=== PATIENT | male | born 1970 | race Caucasian/White ===

== ENCOUNTER 2016-12-06 06:58 | Observation (INO) | payer BC ==
[2016-12-06] MEDS ORDERED: MORPHINE SULFATE 2 MG/ML SYRINGE IVP STA (07:19)
[2016-12-06] MEDS ORDERED: SODIUM CHLORIDE 0.9% 1,000 ML IV STA (07:19)
[2016-12-06] MEDS ORDERED: NITROGLYCERIN OINT 1 INCH/GM PACKET TOPICAL STA (07:19)
[2016-12-06 07:38] LABS: Basophils % (A) 0 %; CH 31.5; Eosinophils # (A) 0.1 k/uL (0-0.7); Eosinophils % (A) 1 %; HCT 43.7 % (39.0-53.0); HDW 2.51; HGB 15.2 gm/dL (13.0-17.5); Luc # (Auto) 0.23; Luc % (Auto) 3; Lymphocytes # (A) 2.8 k/uL (1.0-4.8); Lymphocytes % (A) 31 %; MCH 31.5 pg (25.0-35.0); MCHC 34.8 g/dL (31.0-37.0); MCV 90.4 fL (80.0-100.0); Mean Platelet Volume 6.5; Monocytes # (A) 0.4 k/uL (0-1.0); Monocytes % (A) 4 %; Neutrophils # (A) 5.4 k/uL (1.3-7.7); Neutrophils % (A) 61 %; RBC 4.83 m/uL (4.30-5.90); RDW 12.6 % (11.5-15.5); WBC 8.9 k/uL (3.8-10.6); WBC (Perox) 8.88
--- NOTE | 2016-12-06 07:41 | ED ---
Chest Pain HPI - General Chief Complaint: Chest Pain Stated Complaint: chest pain Time Seen by Provider: 12/06/16 07:10 Source: patient Mode of arrival: EMS Limitations: no limitations - History of Present Illness Initial Comments: Chest pain started down 8:30 this morning he was at work that time and he also felt some discomfort in the left hand and tingling of his fingers on the left hand there was no weakness of the left hand and he denies any history of heart disease and a he didn't he does not have frequent occurrence of the symptoms he also was short winded at the time and a chest pain his chest pain lasted for about 45 minutes he denies any nausea any vomiting any cold sweats the pain was bit worse with a deep breaths. He denies any headaches no neck stiffness no abdominal pain and no frequency urgency dysuria no symptoms of TIA or CVA - Related Data Home Medications Medication Instructions Recorded Confirmed Ibuprofen [Motrin] 800 mg PO TID PRN 04/09/16 12/06/16 Allergies Allergy/AdvReac Type Severity Reaction Status Date / Time No Known Allergies Allergy Verified 12/06/16 07:19 Review of Systems ROS Statement: Those systems with pertinent positive or pertinent negative responses have been documented in the HPI. ROS Other: All systems not noted in ROS Statement are negative. EKG Findings - EKG Comments: EKG Findings:: Him EKG is normal sinus rhythm ventricular rate is 95 NC interval is 152 QRS duration is 86 QT/QTc is 344/432 review of this EKG reveals slight ST depression no ST elevation or ST depression noticed in the other leads I compared today's EKG with the old EKG from [facility] [place] 02/08/2016 and he had the same slight depression in lead 3 Past Medical History Past Medical History: Myocardial Infarction (non Q-wave) Additional Past Medical History / Comment(s): ARTHRITIS, History of Any Multi-Drug Resistant Organisms: None Reported Past Surgical History: No Surgical Hx Reported Past Psychological History: No Psychological Hx Reported Smoking Status: Current every day smoker Past Alcohol Use History: None Reported Past Drug Use History: None Reported General Exam - General Exam Comments Initial Comments: General: The patient is awake and alert, in no distress, and does not appear acutely ill. Skin: Skin is warm and dry and no rashes or lesions are noted. Eye: Pupils are equal, round and reactive to light, extra-ocular movements are intact; there is normal conjunctiva bilaterally. Ears, nose, mouth and throat: There are moist mucous membranes and no oral lesions. Neck: The neck is supple, there is no tenderness Cardiovascular: There is a regular rate and rhythm. No murmur, rub or gallop is appreciated. Respiratory: To auscultation bilateral, exam is consistent with the moderate to severe COPD Gastrointestinal: Soft, non-distended, non-tender abdomen without masses or organomegaly noted. There is no rebound or guarding present. Bowel sounds are unremarkable. Back: There is no tenderness to palpation in the midline. There is no obvious deformity. Musculoskeletal: Normal ROM, no tenderness, There is no pedal edema. There is no calf tenderness or swelling. No cords were appreciated. Neurological: CN II-XII intact, Cranial nerves III through XII are intact. There are no obvious motor or sensory deficits. Coordination appears grossly intact. Speech is normal. Psychiatric: Cooperative, appropriate mood & affect, normal judgment. Limitations: no limitations Course Vital Signs 12/06/16 07:00 Temperature 98.0 F Pulse Rate 98 Respiratory 18 Rate Blood Pressure 127/75 O2 Sat by Pulse 92 L Oximetry Critical Care Time Total Critical Care Time: 45 Critical Care Time: Patient had a chest pain when he was working 5:30 AM at his work is work and does not require a lot of exertion and he does have a number quite a few risk factors he is male is 46 and he has smoked for almost 32 years and one of his parents had heart disease at the age of 44 considering his risk factors I recommended that we put him in our heparinize him at least to 3 sets of cardiac cardiac markers and now have them see cardiology I discussed that with him he agrees with that and will make arrangements him in the ER as well as in the EMS he had some nitroglycerin were some morphine and some fluids along with some aspirin he still not totally pain-free pain is down to 1-2/10 but he still 100% pain-free Disposition Clinical Impression: Chest pain, Pleuritic chest pain Disposition: ADMITTED IP TO THIS HOSP Condition: Good Referrals: Yovani Borrero MD [Primary Care Provider] - 1-2 days
[2016-12-06 07:48] LABS: ALT 65 U/L (21-72); AST 38 U/L (17-59); Alkaline Phosphatase 63 U/L (38-126); Amylase 32 U/L (30-110); Anion Gap 13 mmol/L; Blood Urea Nitrogen 12 mg/dL (9-20); Calcium 9.7 mg/dL (8.4-10.2); Carbon Dioxide 24 mmol/L (22-30); Chloride 107 mmol/L (98-107); Glucose 106 mg/dL (74-99); Magnesium 2.1 mg/dL (1.6-2.3); Non-African American GFR(MDRD) >60 (>60 ml/min/1.73 sqM); Potassium 4.1 mmol/L (3.5-5.1); Sodium 144 mmol/L (137-145); Total Bilirubin 0.7 mg/dL (0.2-1.3); Total Protein 7.9 g/dL (6.3-8.2)
--- NOTE | 2016-12-06 07:51 | XR ---
EXAMINATION TYPE: XR chest 2V DATE OF EXAM: 12/06/2016 7:41 AM COMPARISON: 04/09/2016 HISTORY: 46-year-old male with chest pain, shortness of breath, dizziness TECHNIQUE: PA and lateral views FINDINGS: The cardiomediastinal silhouette, aorta, and pulmonary vasculature are within normal limits. Mild int erstitial prominence and peribronchial cuffing is unchanged and could reflect chronic bronchitis/asth ma. No consolidation or pleural effusion. IMPRESSION: Chronic changes without acute cardiopulmonary process.
[2016-12-06 07:52] LABS: INR 1.1 (<1.1); Partial Thromboplastin Time 25.8 sec (22.0-30.0); Prothrombin Time 11.2 sec (9.0-12.0)
[2016-12-06 08:06] LABS: Creatine Kinase 421 U/L (55-170)
[2016-12-06 08:19] LABS: Troponin I <0.012 ng/mL (0.000-0.034)
[2016-12-06 08:23] LABS: Creatine Kinase MB 4.3 ng/mL (0.0-2.4)
[2016-12-06] MEDS ORDERED: NITROGLYCERIN SL TABS 0.4 MG TAB SUBLINGUAL PRN (08:33)
[2016-12-06] MEDS ORDERED: HEPARIN SODIUM,PORCINE 5,000 UNIT/ML 1 ML VIAL IV ONE (08:33)
[2016-12-06] MEDS: HEPARIN SODIUM,PORCINE/D5W PMX 25,000 UNIT in DEXTROSE/WATER 1 500ML.BAG IV SCH (08:51)
[2016-12-06] MEDS: METOPROLOL TARTRATE 25 MG TAB PO SCH ×2 (09:33→20:52)
[2016-12-06] MEDS: ATORVASTATIN 80 MG TAB PO SCH (09:34)
[2016-12-06 14:25] LABS: Creatine Kinase 293 U/L (55-170)
--- NOTE | 2016-12-06 14:35 | P.CRDCN ---
History of Present Illness Consult date: 12/06/16 Reason for Consult (text): Chest pain Chief complaint: Chest pain History of present illness: this is a pleasant 46-year-old gentleman who denies history of hypertension, hyperlipidemia or diabetes. he does have a history of smoking for over 30 years and drinks about 4-6 cups of coffee a day. he also has a family history of premature coronary artery disease, his mother had an MD in her 40s. He presented to the emergency department after developing chest pain at work. The chest pain he described as alternating between dull and sharp lasted about 45 minutes he did have discomfort in his left hand and described a sensation of pins and needles in his fingers. Patient is unable to clearly tell if the pain was worsened with inspiration or palpation. he also had some shortness of breath and dizziness associated with that episode of chest discomfort. He does have a history of a similar episode about 6 or 7 months ago, said he was seen in the emergency department however left without complete workup. Chest x-ray at admission showed chronic changes without acute cardiopulmonary processes. CK and CK-MB were elevated however first troponin was less than 0.012, BNP was 12. EKG showed normal sinus rhythm without evidence of ischemia. he was started on IV heparin, aspirin 325 daily, atorvastatin and metoprolol. upon examination , patient is resting comfortably on a stretcher in the emergency department. He denies further complaints of chest discomfort, shortness of breath, dizziness. He denies complaints of syncope, palpitations or edema. Past Medical History Past Medical History: Myocardial Infarction (MD), Myocardial Infarction (non Q- wave), Osteoarthritis (OA), Pneumonia Additional Past Medical History / Comment(s): Pt states he had a MD 7-8 months ago but left ER AMA (past medical record indicate he presented to [facility] ER with chest pain and discharged home) and another MD in 2011 but declined admission, ARTHRITIS in R shoulder, bronchitis. Last Myocardial Infarction Date:: ?Pt states MD in 04/2016 History of Any Multi-Drug Resistant Organisms: None Reported Past Surgical History: No Surgical Hx Reported Additional Past Surgical History / Comment(s): R leg tendon/muscle repair and skin graft from injury as a 9yr old child. Past Anesthesia/Blood Transfusion Reactions: No Reported Reaction Past Psychological History: Depression Additional Psychological History / Comment(s): Pt states he was going to make an appt with his doctor in regards to his believing he has some depression. He denies suicidal thoughts/plans. Pt is from his spouse. He lives with his brother. He is independent. Smoking Status: Current every day smoker Past Alcohol Use History: None Reported Additional Past Alcohol Use History / Comment(s): Pt started smoking in 1983 and the amount he smokes each day varies. Past Drug Use History: Marijuana Additional Drug Use History / Comment(s): Pt smokes medical marijuana for pain. - Past Family History Mother Family Medical History: Congestive Heart Failure (CHF), Coronary Artery Disease (CAD) Additional Family Medical History / Comment(s): Mother at the age of 83yrs. Father History Unknown: Yes Medications and Allergies Home Medications Medication Instructions Recorded Confirmed Type Ibuprofen [Motrin] 800 mg PO TID PRN 04/09/16 12/06/16 History Allergies Allergy/AdvReac Type Severity Reaction Status Date / Time No Known Allergies Allergy Verified 12/06/16 07:19 Physical Exam Vitals: Vital Signs Temp Pulse Resp BP Pulse Ox 12/06/16 08:54 97.3 F L 85 14 132/77 99 PHYSICAL EXAMINATION: HEENT: [Head is atraumatic, normocephalic. Pupils equal, round. Neck is supple. There is no elevated jugular venous pressure.] HEART EXAMINATION: [Heart sounds regular, S1 and S2 normal. No murmur or gallop heard.] CHEST EXAMINATION:[ Lungs are clear to auscultation and precussion. No chest wall tenderness is noted on palpation or with deep breathing.] ABDOMEN: [ Soft, nontender. Bowel sounds are heard. No organomegaly noted]. EXTREMITIES:[ 2+ peripheral pulses with no evidence of peripheral edema and no calf tenderness noted]. NEUROLOGIC [patient is awake, alert and oriented x3.] . Results 12/06/16 07:19 12/06/16 07:19 Current Medications Generic Name Dose Route Start Last Admin Trade Name Freq PRN Reason Stop Dose Admin Aspirin 325 mg 12/07/16 09:00 Aspirin PO DAILY SKIP Atorvastatin Calcium 80 mg 12/06/16 09:00 12/06/16 09:34 Lipitor PO 80 mg DAILY SKIP Administration Sodium Chloride 1,000 mls @ 100 mls/hr 12/06/16 07:19 12/06/16 07:26 Saline 0.9% IV 12/06/16 17:18 100 mls/hr .Q10H STA Administration Heparin Sodium/Dextrose 25,000 500 mls @ 19.95 mls/hr 12/06/16 08:45 08:51 unit/ IV Solution IV 10 units/kg/hr .Q24H SKIP 19.95 mls/hr Protocol Administration 10 UNITS/KG/HR Metoprolol Tartrate 25 mg 12/06/16 09:00 12/06/16 09:33 Lopressor PO 25 mg BID SKIP Administration Nitroglycerin 0.4 mg 12/06/16 08:33 Nitrostat SUBLINGUAL Q5M PRN Chest Pain EKG Interpretations (text) normal sinus rhythm Assessment and Plan Plan: assessment and plan #1 chest pain, first troponin negative #2 nicotine dependence #3 family history of premature coronary artery disease from cardiology's perspective, we will obtain a 2-D echo. We will continue IV heparin. Obtain 2 additional troponin levels. Monitor the patient overnight. Further recommendations to follow. TEST BORER note has been reviewed, I agree with a documented findings and plan of care. Patient was seen and examined.
[2016-12-06 14:37] LABS: Troponin I <0.012 ng/mL (0.000-0.034)
[2016-12-06 15:00] LABS: Creatine Kinase MB 3.3 ng/mL (0.0-2.4)
--- NOTE | 2016-12-06 15:45 | PN ---
This gentleman was seen and evaluated by me. A full dictation will be performed by Rosario Aleman, nurse practitioner. This patient came in with chest pain which was quite atypical. His initial EKG and troponins are unremarkable. He has no pain at this time. He smokes one and a half pack daily and also has some family history of CAD as well. He is resting comfortably without symptoms. Vital signs are stable. We are going to continue serial troponins and EKGs, and based on clinical course I will make further recommendations. He has been counseled regarding the need to quit smoking. I will see this patient again in the morning.
[2016-12-06 16:53] LABS: Partial Thromboplastin Time 28.9 sec (22.0-30.0)
--- NOTE | 2016-12-06 17:38 | HP ---
DATE OF ADMISSION: 12/06/2016 Patient is a 46-year-old who came in with complaints of chest pain that started today morning at work. Patient ate one and a half hours before that. The pain is a sharp pain on the left side of the chest. Has some pleuritic component. It lasted for about 45 minutes, about 6 to 7 out of 10 in severity, non-radiating, Did complain of some associated shortness of breath, diaphoresis. Complaining of some light-headedness as well. Chest x-ray did not show any significant abnormality. Patient denied any cough. Patient's chest pain is non-reproducible. Patient's D-dimer is negative. Patient denied any complaints of syncope, palpitations. Did complain of some shortness of breath, orthopnea, PND. Did complain of some dizziness. Denied any nausea. REVIEW OF SYSTEMS: CONSTITUTIONAL: No fever, no malaise, no fatigue. HEENT: No recent visual problems or hearing problems. Denied any sore throat. CARDIOVASCULAR: As described in HPI. PULMONARY: No shortness of breath, no cough, no hemoptysis. GASTROINTESTINAL: No diarrhea, no nausea, no vomiting, no abdominal pain. Normoactive bowel sounds. NEUROLOGICAL: No headaches, no weakness, no numbness. HEMATOLOGICAL: Denies any bleeding or petechiae. GENITOURINARY: Denies any burning micturition, frequency, or urgency. MUSCULOSKELETAL/RHEUMATOLOGICAL: Denies any joint pain, swelling, or any muscle pain. ENDOCRINE: Denies any polyuria or polydipsia. The rest of the 14 point review of systems is negative. PAST MEDICAL HISTORY: 1. Chronic low back pain. 2. Depression. SOCIAL HISTORY: Patient does smoke. Denied any alcohol abuse. Occasional use of marijuana. Patient smokes medical marijuana for pain. FAMILY HISTORY: Mother had congestive heart failure. Mother has premature coronary artery disease. Home medications include ibuprofen. ALLERGIES: NO KNOWN DRUG ALLERGIES. PHYSICAL EXAMINATION: VITAL SIGNS: Temperature 97.3, pulse of 85, respiratory rate of 14. Blood pressure is 132/77. Saturating at 99% on room air. GENERAL: The patient is alert and oriented x3, not in any acute distress. Well developed, well nourished. HEENT: Pupils are round and equally reacting to light. EOMI. No scleral icterus. No conjunctival pallor. Normocephalic, atraumatic. No pharyngeal erythema. No thyromegaly. CARDIOVASCULAR: S1 and S2 present. No murmurs, rubs, or gallops. PULMONARY: Chest is clear to auscultation, no wheezing or crackles. ABDOMEN: Soft, nontender, nondistended, normoactive bowel sounds. No palpable organomegaly. MUSCULOSKELETAL: No joint swelling or deformity. EXTREMITIES: No cyanosis, clubbing, or pedal edema. NEUROLOGICAL: Gross neurological examination did not reveal any focal deficits. SKIN: No rashes. LABORATORY DATA: CBC, CMP are essentially within normal limits. CK-MB is minimally elevated. Two sets of troponins are negative. EKG: Defer to Cardiology. ASSESSMENT AND PLAN: 1. Chest pain. Rule out acute coronary artery syndromes or unstable angina. I am not sure about exact etiology of chest pain. D-dimer is negative. Patient is getting a 2-D echocardiogram tomorrow. If that is negative, patient may need an outpatient stress test and can be discharged tomorrow after 3 sets of troponin. 2. Nicotine dependence. Counseling was provided. 3. Chronic low back pain.
[2016-12-06] MEDS: HEPARIN SODIUM,PORCINE 5,000 UNIT/ML 1 ML VIAL IV PRN (17:53)
[2016-12-06 19:34] VITALS: RESP 16
[2016-12-06 20:20] LABS: Creatine Kinase 222 U/L (55-170)
[2016-12-06 20:31] LABS: Troponin I <0.012 ng/mL (0.000-0.034)
[2016-12-06 20:37] LABS: Creatine Kinase MB 2.6 ng/mL (0.0-2.4)
[2016-12-07] MEDS: HEPARIN SODIUM,PORCINE 5,000 UNIT/ML 1 ML VIAL IV PRN (01:13)
[2016-12-07] MEDS: HEPARIN SODIUM,PORCINE/D5W PMX 25,000 UNIT in DEXTROSE/WATER 1 500ML.BAG IV SCH (05:32)
[2016-12-07] MEDS: METOPROLOL TARTRATE 25 MG TAB PO SCH (08:10)
[2016-12-07] MEDS: ATORVASTATIN 80 MG TAB PO SCH (08:10)
[2016-12-07 08:25] LABS: Cholesterol 132 mg/dL (<200); HDL Cholesterol 33 mg/dL (40-60); Triglycerides 96 mg/dL (<150)
[2016-12-07] MEDS ORDERED: ASPIRIN 325 MG TAB PO SCH (09:00)
--- NOTE | 2016-12-07 09:29 | ECHOF ---
Referral Reason:chest pain MEASUREMENTS -------- HEIGHT: 182.9 cm WEIGHT: 99.8 kg BP: RVIDd: 3.5 cm (< 3.3) IVSd: 0.9 cm (0.6 - 1.1) LVIDd: 4.8 cm (3.9 - 5.3) LVPWd: 1.0 cm (0.6 - 1.1) IVSs: 1.8 cm LVIDs: 3.3 cm LVPWs: 1.5 cm LA Diam: 3.2 cm (2.7 - 3.8) LAESV Index (A-L): 22.44 ml/m Ao Diam: 3.2 cm (2.0 - 3.7) AV Cusp: 2.2 cm (1.5 - 2.6) LA Diam: 3.3 cm (2.7 - 3.8) MV EXCURSION: 12.495 mm (> 18.000) MV EF SLOPE: 113 mm/s (70 - 150) EPSS: 0.5 cm MV E [place]: 0.52 m/s MV DecT: 190 ms MV A [place]: 0.63 m/s MV E/A Ratio: 0.84 RAP: 5.00 mmHg RVSP: 24.03 mmHg FINDINGS -------- Sinus rhythm. This was a technically good study. Left ventricular wall thickness is normal. Overall left ventricular systolic function is normal with, an EF between 55 - 60 %. The right ventricle is mildly enlarged. Normal LA size by volume 22+/-6 ml/m2. The right atrium is normal in size. The aortic valve is trileaflet and appears structurally normal. Mild mitral annular calcification present. There is trace mitral regurgitation. Trace tricuspid regurgitation present. Right ventricular systolic pressure is normal at < 35 mmHg. Trace/mild (physiologic) pulmonic regurgitation. The aortic root size is normal. The inferior vena cava is mildly dilated. There is no pericardial effusion. CONCLUSIONS -------- 1. Sinus rhythm. 2. There is trace mitral regurgitation. 3. Trace tricuspid regurgitation present. 4. Right ventricular systolic pressure is normal at < 35 mmHg. 5. Trace/mild (physiologic) pulmonic regurgitation. 6. The aortic root size is normal. 7. The inferior vena cava is mildly dilated. 8. There is no pericardial effusion. 9. This was a technically good study. 10. Left ventricular wall thickness is normal. 11. Overall left ventricular systolic function is normal with, an EF between 55 - 60 %. 12. The right ventricle is mildly enlarged. 13. Normal LA size by volume 22+/-6 ml/m2. 14. The right atrium is normal in size. 15. The aortic valve is trileaflet and appears structurally normal. 16. Mild mitral annular calcification present. EQUALIZING SAW OPERATOR: Jamilah Dalton RDCS
--- NOTE | 2016-12-07 11:24 | PN ---
This gentleman is comfortable, resting. Yesterday he had another squeezing feeling in the left anterior chest and also tingling feeling in the left arm. The symptoms seem atypical. Troponins are normal. EKG this morning is unremarkable. I will increase activity, and see if he has any further symptoms. If he has any symptoms, I will perform cardiac cath. Otherwise I will discharge him and perform a stress test as an outpatient. I discussed my thoughts in detail with the patient. His vital signs are stable. Blood pressure is under decent control at 138/74, pulse rate is 70 per minute. There is no JVD or carotid bruit. S1, S2 heard normally. Lungs are clear. Abdomen and lower extremity exam was unremarkable.
[2016-12-07 11:50] VITALS: BP 119/58; PULSE 78; TEMP 98.1
[2016-12-08] MEDS ORDERED: ASPIRIN 325 MG TAB PO SCH (09:00)
--- NOTE | 2016-12-08 14:05 | DS ---
DATE OF ADMISSION: 12/06/2016 DATE OF DISCHARGE: 12/07/2016 HOSPITAL COURSE: Mr. Kelley is a 46-year-old male with past medical history of chronic low back pain and depression coming into the hospital with a chief complaint of chest pain. The patient states that he had a left-sided sharp chest pain, which lasted for about 45 minutes and 3 out of 10 in severity. Did complain of some shortness of breath associated diaphoresis and so came into the hospital for further evaluation. The patient had a d-dimer that was within normal limits. Patient did not have a syncopal episode or palpitations. Patient had serial EKGs and troponins done that were within normal limits. Cardiology has been consulted. It was discussed with him that he will need a stress test as outpatient and so cleared by Cardiology to be discharged home. Patient was counseled on smoking cessation and is being discharged home in stable condition today. PROCEDURES: The patient had echocardiogram, which is showing an EF of 55% to 60%. PATIENT'S DISCHARGE DIAGNOSES: 1. Atypical chest pain. 2. Nicotine and dependence. 3. Chronic low back pain. 4. History of depression, unspecified. Patient's discharge medications: Motrin 800 mg p.o. 3 times a day p.r.n. for pain. FOLLOW-UP: The patient is advised to follow-up with Dr. Lynn Muse and he was given an appointment on 12/09/2016 and also advised to follow with his PCP within 1 to 2 days, Dr. Yovani Borrero.
== END 2016-12-07 15:13 | disposition home or self-care (01) ==
LOC: EC 06:58 → 3OBS 08:34
PROVIDERS: ADMIT Internal Medicine; ATTEND Internal Medicine
DX: R07.89 Other chest pain (principal); M54.5 Low back pain; G89.29 Other chronic pain; F32.9 Major depressive disorder, single episode, unspecified; F12.90 Cannabis use, unspecified, uncomplicated; F17.200 Nicotine dependence, unspecified, uncomplicated; I25.2 Old myocardial infarction; M19.90 Unspecified osteoarthritis, unspecified site; R42 Dizziness and giddiness; R06.02 Shortness of breath; R61 Generalized hyperhidrosis; R20.2 Paresthesia of skin
CPT/HCPCS: 99291 ×2; 96365 ×2; 96366 ×8; 96375 ×2; 96376 ×2; 36415; 93005; 93306; 85379; 83880; 80061; 80053; 82150; 82550; 82553; 83690; 83735; 84484; 85025; 85610; 85730 ×2; 71020; G0378 ×2; J1644 ×4; J2270

== ENCOUNTER 2017-01-31 02:31 | Emergency (ER) | payer BC ==
[2017-01-31 02:38] VITALS: BP 145/88; PULSE 74; RESP 18; TEMP 98
--- NOTE | 2017-01-31 02:56 | ED ---
Extremity Problem HPI - General Chief complaint: Extremity Problem,Nontraumatic Stated complaint: right shoulder pain, right hand swelling Time Seen by Provider: 01/31/17 02:42 Source: patient, RN notes reviewed, old records reviewed Mode of arrival: ambulatory Limitations: no limitations - History of Present Illness Initial comments: This is a 46 year old male with right shoulder pain for the past week. PAtietn reports he went to [facility] and was told he has muscle tear and sprain. Denies any trauma or falls, patient reports pain is worse with range of motion of shoulder. Patient states that he left work tonight because the pain is so bad. Patient denies any fever or chills, chest pain, shortness of breath, nausea, vomting. - Related Data Home Medications Medication Instructions Recorded Confirmed Naproxen [Naprosyn] 500 mg PO DAILY 01/31/17 01/31/17 Previous Rx's Medication Instructions Recorded Cyclobenzaprine [Flexeril] 10 mg PO TID #15 tab 01/31/17 traMADol HCl [Ultram] 50 mg PO Q4H PRN #20 tab 01/31/17 Allergies Allergy/AdvReac Type Severity Reaction Status Date / Time No Known Allergies Allergy Verified 12/06/16 07:19 Review of Systems ROS Statement: Those systems with pertinent positive or pertinent negative responses have been documented in the HPI. ROS Other: All systems not noted in ROS Statement are negative. Past Medical History Past Medical History: Myocardial Infarction (PA), Myocardial Infarction (non Q- wave), Osteoarthritis (OA), Pneumonia Additional Past Medical History / Comment(s): Pt states he had a PA 7-8 months ago but left ER AMA (past medical record indicate he presented to [facility] ER with chest pain and discharged home) and another PA in 2011 but declined admission, ARTHRITIS in R shoulder, bronchitis. Last Myocardial Infarction Date:: ?Pt states PA in 04/2016 History of Any Multi-Drug Resistant Organisms: None Reported Past Surgical History: No Surgical Hx Reported Additional Past Surgical History / Comment(s): R leg tendon/muscle repair and skin graft from injury as a 9yr old child. Past Anesthesia/Blood Transfusion Reactions: No Reported Reaction Past Psychological History: Depression Additional Psychological History / Comment(s): Pt states he was going to make an appt with his doctor in regards to his believing he has some depression. He denies suicidal thoughts/plans. Pt is from his spouse. He lives with his brother. He is independent. Smoking Status: Current every day smoker Past Alcohol Use History: None Reported Additional Past Alcohol Use History / Comment(s): Pt started smoking in 1983 and the amount he smokes each day varies. Past Drug Use History: Marijuana Additional Drug Use History / Comment(s): Pt smokes medical marijuana for pain. - Past Family History Mother Family Medical History: Congestive Heart Failure (CHF), Coronary Artery Disease (CAD) Additional Family Medical History / Comment(s): Mother at the age of 83yrs. Father History Unknown: Yes General Exam - General Exam Comments Initial Comments: Well appearing 46 year old male, no distress. Limitations: no limitations General appearance: alert, in no apparent distress Head exam: Present: atraumatic, normocephalic, normal inspection Eye exam: Present: normal appearance, PERRL, EOMI. Absent: scleral icterus, conjunctival injection, periorbital swelling ENT exam: Present: normal exam, mucous membranes moist Neck exam: Present: normal inspection. Absent: tenderness, meningismus, lymphadenopathy Respiratory exam: Present: normal lung sounds bilaterally. Absent: respiratory distress, wheezes, rales, rhonchi, stridor Cardiovascular Exam: Present: regular rate, normal rhythm, normal heart sounds. Absent: systolic murmur, diastolic murmur, rubs, gallop, clicks GI/Abdominal exam: Present: soft, normal bowel sounds. Absent: distended, tenderness, guarding, rebound, rigid Extremities exam: Present: normal inspection, full ROM, normal capillary refill , other (right shoulder tenderness, and scapular tenderness. ). Absent: tenderness, pedal edema, joint swelling, calf tenderness Back exam: Present: normal inspection Neurological exam: Present: alert, oriented X3, CN II-XII intact Psychiatric exam: Present: normal affect, normal mood Skin exam: Present: warm, dry, intact, normal color. Absent: rash Course Vital Signs 01/31/17 02:35 Temperature 98.0 F Pulse Rate 74 Respiratory 18 Rate Blood Pressure 145/88 O2 Sat by Pulse 98 Oximetry Medical Decision Making - Medical Decision Making This is a 46 year old male with right shoulder pain for the past week. Gin reports he went to [facility] and was told he has muscle tear and sprain. Denies any trauma or falls, patient reports pain is worse with range of motion of shoulder. Patient states that he left work tonight because the pain is so bad. Patient shoulder xray is negative. Patient given Sling and given Rx for pain medication. Discussed orthopedic follow up. Patient understands treatmentplan and willcomply. - Radiology Data Radiology results: report reviewed Xray is negative. Disposition Clinical Impression: Right shoulder pain Disposition: HOME SELF-CARE Condition: Good Instructions: Rotator Cuff Injury (ED) Additional Instructions: Rest, ice, and elevate extremity. Follow-up with primary care provider or orthopedic physician. Return to emergency department if any alarming signs or symptoms occur. Prescriptions: Cyclobenzaprine [Flexeril] 10 mg PO TID #15 tab traMADol HCl [Ultram] 50 mg PO Q4H PRN #20 tab PRN Reason: Pain Referrals: Yovani Borrero MD [Primary Care Provider] - 1-2 days Time of Disposition: 02:54
== END 2017-01-31 03:09 | disposition home or self-care (01) ==
LOC: EC 02:31
DX: M25.511 Pain in right shoulder (principal); M19.90 Unspecified osteoarthritis, unspecified site; F17.200 Nicotine dependence, unspecified, uncomplicated; Z79.1 Long term (current) use of non-steroidal anti-inflammatories (NSAID)
CPT/HCPCS: 99283

== ENCOUNTER 2017-03-18 23:32 | Emergency (ER) | payer BC ==
--- NOTE | 2017-03-19 00:23 | ED ---
Chest Pain HPI - General Chief Complaint: Chest Pain Stated Complaint: arm numbness,light headed Time Seen by Provider: 03/18/17 23:48 Source: patient Mode of arrival: ambulatory Limitations: no limitations - History of Present Illness Initial Comments: This patient is a 46-year-old man who presents to be evaluated for chest pain. The patient states that last night while he was at work he had to brief stabbing episodes of left chest pain. These lasted a few seconds each. They were moderate intensity. They resolved completely. He did not have any accompanying symptoms. Over the course of this evening, patient has had another episode of left-sided chest pain. He had some lightheadedness. Any noted that felt like the fingertips of his hand were numb. MD Complaint: chest pain Onset/Timin -: days(s) Onset: during rest Pain Location: left chest Pain Radiation: none Severity: moderate Quality: aching, sharp Consistency: intermittent Improves With: nothing Worsens With: nothing - Related Data Home Medications Medication Instructions Recorded Confirmed Naproxen [Naprosyn] 500 mg PO DAILY 01/31/17 01/31/17 Previous Rx's Medication Instructions Recorded Cyclobenzaprine [Flexeril] 10 mg PO TID #15 tab 01/31/17 traMADol HCl [Ultram] 50 mg PO Q4H PRN #20 tab 01/31/17 predniSONE 20 mg PO BID #8 tab 03/19/17 Allergies Allergy/AdvReac Type Severity Reaction Status Date / Time No Known Allergies Allergy Verified 12/06/16 07:19 Review of Systems ROS Statement: Those systems with pertinent positive or pertinent negative responses have been documented in the HPI. ROS Other: All systems not noted in ROS Statement are negative. Constitutional: Denies: fever, chills, weakness Respiratory: Denies: cough, dyspnea, wheezes Cardiovascular: Reports: chest pain. Denies: palpitations, edema, syncope Gastrointestinal: Denies: abdominal pain, nausea, vomiting Genitourinary: Denies: dysuria, hematuria Musculoskeletal: Denies: back pain Skin: Denies: rash Neurological: Reports: numbness (See above). Denies: headache, weakness, paresthesias, confusion Psychiatric: Reports: anxiety EKG Findings - EKG Results: EKG: interpreted by ADAM, WNL, sinus rhythm (Rate 84 bpm), normal axis, normal QRS, normal ST/T, no acute changes - DE, Pacemaker, Normal: Normal tracing: normal tracing Past Medical History Past Medical History: Myocardial Infarction (DE), Myocardial Infarction (non Q- wave), Osteoarthritis (OA), Pneumonia Additional Past Medical History / Comment(s): Pt states he had a DE 7-8 months ago but left ER AMA (past medical record indicate he presented to [facility] ER with chest pain and discharged home) and another DE in 2011 but declined admission, ARTHRITIS in R shoulder, bronchitis. Last Myocardial Infarction Date:: ?Pt states DE in 04/2016 History of Any Multi-Drug Resistant Organisms: None Reported Past Surgical History: No Surgical Hx Reported Additional Past Surgical History / Comment(s): R leg tendon/muscle repair and skin graft from injury as a 9yr old child. Past Anesthesia/Blood Transfusion Reactions: No Reported Reaction Past Psychological History: Depression Smoking Status: Current every day smoker Past Alcohol Use History: None Reported Past Drug Use History: Marijuana - Past Family History Mother Family Medical History: Congestive Heart Failure (CHF), Coronary Artery Disease (CAD) Additional Family Medical History / Comment(s): Mother at the age of 83yrs. Father History Unknown: Yes General Exam Limitations: no limitations General appearance: alert, in no apparent distress Head exam: Present: atraumatic, normocephalic Eye exam: Present: normal appearance. Absent: scleral icterus, conjunctival injection ENT exam: Present: normal oropharynx Neck exam: Present: normal inspection, full ROM Respiratory exam: Present: normal lung sounds bilaterally. Absent: respiratory distress, wheezes, rales, rhonchi, stridor Cardiovascular Exam: Present: regular rate, normal rhythm, normal heart sounds. Absent: systolic murmur, diastolic murmur, rubs, gallop GI/Abdominal exam: Present: soft. Absent: distended, tenderness, guarding Extremities exam: Present: normal inspection, normal capillary refill. Absent: pedal edema, calf tenderness Back exam: Present: normal inspection. Absent: CVA tenderness (R), CVA tenderness (L) Neurological exam: Present: alert Skin exam: Present: warm, dry, intact, normal color, other (Multiple tattoos). Absent: rash Course Vital Signs 03/18/17 03/19/17 03/19/17 23:43 00:00 01:30 Temperature 99 F 97.2 F L Pulse Rate 86 81 83 Respiratory 16 18 14 Rate Blood Pressure 136/86 118/69 125/78 O2 Sat by Pulse 99 96 98 Oximetry 03/19/17 03/19/17 03:17 04:37 Temperature 97.8 F 97.9 F Pulse Rate 74 74 Respiratory 16 16 Rate Blood Pressure 134/87 120/80 O2 Sat by Pulse 99 98 Oximetry Chest Pain [facility] Patient is a 46-year-old man presenting with some atypical chest pains. Further history does reveal patient has had recent cough, and there is evidence of bronchitis for which she'll be treated. Patient follow-up to ensure resolution of the bronchitis and also for further evaluation of chest pain. He did have a stress test as an outpatient which she states was between 12 months ago and was told this was normal. Disposition Clinical Impression: Chest pain, Bronchitis Disposition: HOME SELF-CARE Condition: Good Instructions: Chest Pain (ED), Acute Bronchitis (ED) Prescriptions: predniSONE 20 mg PO BID #8 tab Referrals: Yovani Borrero MD [Primary Care Provider] - 1-2 days
[2017-03-19 00:35] LABS: Basophils % (A) 0 %; CH 31.7; CHCM 35.4; Eosinophils # (A) 0.3 k/uL (0-0.7); Eosinophils % (A) 4 %; HCT 41.5 % (39.0-53.0); HDW 2.61; HGB 15.1 gm/dL (13.0-17.5); Luc # (Auto) 0.21; Luc % (Auto) 3; Lymphocytes # (A) 2.6 k/uL (1.0-4.8); Lymphocytes % (A) 34 %; MCH 32.7 pg (25.0-35.0); MCHC 36.4 g/dL (31.0-37.0); Mean Platelet Volume 6.4; Monocytes # (A) 0.4 k/uL (0-1.0); Monocytes % (A) 5 %; Neutrophils # (A) 4.1 k/uL (1.3-7.7); Neutrophils % (A) 53 %; RBC 4.61 m/uL (4.30-5.90); WBC 7.7 k/uL (3.8-10.6)
[2017-03-19 00:48] LABS: ALT 49 U/L (21-72); AST 26 U/L (17-59); Alkaline Phosphatase 68 U/L (38-126); Anion Gap 10 mmol/L; Blood Urea Nitrogen 19 mg/dL (9-20); Calcium 9.3 mg/dL (8.4-10.2); Carbon Dioxide 22 mmol/L (22-30); Chloride 108 mmol/L (98-107); Glucose 95 mg/dL (74-99); Magnesium 1.9 mg/dL (1.6-2.3); Non-African American GFR(MDRD) >60 (>60 ml/min/1.73 sqM); Potassium 4.2 mmol/L (3.5-5.1); Sodium 140 mmol/L (137-145); Total Bilirubin 0.2 mg/dL (0.2-1.3); Total Protein 6.7 g/dL (6.3-8.2)
[2017-03-19 00:52] LABS: Partial Thromboplastin Time 26.5 sec (22.0-30.0); Prothrombin Time 10.4 sec (9.0-12.0)
--- NOTE | 2017-03-19 01:55 | XR ---
EXAM: XR Chest, 2 Views CLINICAL HISTORY: Chest pain. TECHNIQUE: Frontal and lateral views of the chest. COMPARISON: CXR dated 12/06/2016. FINDINGS: Lungs: Stable mild prominence of interstitial markings and mild central peribronchial thickening. No focal consolidation. No pulmonary edema. Pleural space: No pleural effusion. No pneumothorax. Heart: Unremarkable. No cardiomegaly. Mediastinum: Unremarkable. Bones/joints: Unremarkable. IMPRESSION: 1. Stable mild prominence of interstitial markings and mild central peribronchial thickening. Findings may represent chronic changes of asthma or bronchitis. Correlate clinically. 2. No focal consolidation, pleural effusion or pneumothorax.
[2017-03-19 03:18] VITALS: PULSE 74; RESP 16
[2017-03-19] MEDS ORDERED: predniSONE 20 MG TAB PO STA (04:10)
[2017-03-19 04:38] VITALS: BP 120/80; TEMP 97.9
== END 2017-03-19 04:38 | disposition home or self-care (01) ==
LOC: EC 23:32
DX: J40 Bronchitis, not specified as acute or chronic (principal); I25.2 Old myocardial infarction; M19.90 Unspecified osteoarthritis, unspecified site; F17.200 Nicotine dependence, unspecified, uncomplicated; Z79.1 Long term (current) use of non-steroidal anti-inflammatories (NSAID); Z87.01 Personal history of pneumonia (recurrent); Z82.49 Family history of ischemic heart disease and other diseases of the circulatory system
CPT/HCPCS: 36415 ×2; 93005; 85379; 80053; 83735; 84484 ×2; 85025; 85610; 85730; 71020; 99285; J7512

== ENCOUNTER 2017-04-03 03:12 | Emergency (ER) | payer BC ==
[2017-04-03 03:20] VITALS: TEMP 97.9
[2017-04-03] MEDS ORDERED: IBUPROFEN 600 MG TAB PO STA (03:28)
--- NOTE | 2017-04-03 03:35 | ED ---
Extremity Problem HPI - General Chief complaint: Extremity Problem,Nontraumatic Stated complaint: Ankle pain Time Seen by Provider: 04/03/17 03:23 Source: patient, RN notes reviewed Mode of arrival: ambulatory Limitations: no limitations - History of Present Illness Initial comments: Patient is a 46-year-old male presents emergency room for evaluation of left ankle pain. Patient states he was at work, standing and noticed pain on the medial portion of his ankle. Patient states that in 2 out of 10 pain. Patient denies any numbness or tingling in his toes. Patient denies any specific injury or trauma to his ankle recently. Patient denies calf pain. Patient denies any noted swelling or redness. Patient denies any other complaints at this time. - Related Data Home Medications Medication Instructions Recorded Confirmed Citalopram Hydrobromide 20 mg PO DAILY 04/03/17 04/03/17 [Citalopram HBr] busPIRone HCL [busPIRone HCL] 10 mg PO Q4-6H PRN 04/03/17 04/03/17 Previous Rx's Medication Instructions Recorded traMADol HCl [Ultram] 50 mg PO Q4H PRN #20 tab 01/31/17 Ibuprofen [Motrin] 600 mg PO Q6HR PRN #20 tab 04/03/17 Allergies Allergy/AdvReac Type Severity Reaction Status Date / Time No Known Allergies Allergy Verified 04/03/17 03:20 Review of Systems ROS Statement: Those systems with pertinent positive or pertinent negative responses have been documented in the HPI. ROS Other: All systems not noted in ROS Statement are negative. Past Medical History Past Medical History: Myocardial Infarction (MT), Myocardial Infarction (non Q- wave), Osteoarthritis (OA), Pneumonia Additional Past Medical History / Comment(s): Pt states he had a MT 7-8 months ago but left ER AMA (past medical record indicate he presented to [facility] ER with chest pain and discharged home) and another MT in 2011 but declined admission, ARTHRITIS in R shoulder, bronchitis. Last Myocardial Infarction Date:: ?Pt states MT in 04/2016 History of Any Multi-Drug Resistant Organisms: None Reported Past Surgical History: No Surgical Hx Reported Additional Past Surgical History / Comment(s): R calf tendon/muscle repair and skin graft from injury as a 9yr old child. Past Anesthesia/Blood Transfusion Reactions: No Reported Reaction Past Psychological History: Depression Smoking Status: Current every day smoker Past Alcohol Use History: None Reported Past Drug Use History: None Reported, Marijuana - Past Family History Mother Family Medical History: Congestive Heart Failure (CHF), Coronary Artery Disease (CAD) Additional Family Medical History / Comment(s): Mother at the age of 83yrs. Father History Unknown: Yes General Exam - General Exam Comments Initial Comments: sitting in exam room, no acute distress. Limitations: no limitations General appearance: alert, in no apparent distress Head exam: Present: atraumatic, normocephalic, normal inspection Eye exam: Present: normal appearance ENT exam: Present: normal exam Neck exam: Present: normal inspection Respiratory exam: Absent: respiratory distress Left Lower Leg exam: Present: normal inspection, full ROM. Absent: tenderness Ankle exam: Present: normal inspection, full ROM, tenderness (medial malleolus) . Absent: swelling Foot/Toe exam: Present: normal inspection, full ROM. Absent: tenderness Neurovascular tendon exam: Present: no vascular compromise. Absent: pulse deficit (2+ dorsal pedal and posterior tibial pulses), abnormal cap refill ( capillary refill less than 2 seconds) Back exam: Present: normal inspection Neurological exam: Present: alert, oriented X3, CN II-XII intact, normal gait Psychiatric exam: Present: normal affect, normal mood Skin exam: Present: warm, dry, intact, normal color. Absent: rash Course Vital Signs 04/03/17 03:17 Temperature 97.9 F Pulse Rate 85 Respiratory 18 Rate Blood Pressure 131/71 O2 Sat by Pulse 98 Oximetry Medical Decision Making - Medical Decision Making patient is a 46-year-old male presents emergency room for evaluation of left ankle pain. No swelling, deformity, erythema or signs of infection noted. Ankle x-ray shows no acute fractures or dislocations. Patient placed in an Eitan wrap and advised to follow-up with primary care provider symptoms do not improve in 7-10 days. Patient states he understands everything that was discussed with him. Return parameters discussed. Case discussed Dr. Browning. - Radiology Data Radiology results: image reviewed Disposition Clinical Impression: Left ankle pain Disposition: HOME SELF-CARE Condition: Good Instructions: Ankle Sprain (ED) Additional Instructions: Ice on and off for 10-15 minutes for the next 24-48 hours. Please follow-up with primary care provider in 7-10 days if symptoms are not improving. If new symptoms develop or symptoms worsen, please return to the ER. Prescriptions: Ibuprofen [Motrin] 600 mg PO Q6HR PRN #20 tab PRN Reason: Pain Referrals: Yovani Borrero MD [Primary Care Provider] - 1-2 days Time of Disposition: 04:41
--- NOTE | 2017-04-03 04:48 | XR ---
EXAM: XR Left Foot Complete, 3 or More Views CLINICAL HISTORY: Reason: Pain status post injury. TECHNIQUE: Frontal, lateral and oblique views of the left foot. COMPARISON: No relevant prior studies available. FINDINGS: Limitations: Accentuated flexion of the second through fifth digits particularly the fifth digit, which creates some overlap. Bones/joints: Minimal enthesopathic change at the Achilles insertion site and tiny plantar calcaneal spur are seen. No acute fracture. No dislocation. Soft tissues: Unremarkable. No radiopaque foreign body. IMPRESSION: No acute osseous abnormality is seen at this time. Note, nondisplaced fractures may initially be inapparent and short-term follow-up could be considered as clinically indicated.
[2017-04-03 04:55] VITALS: BP 128/76; PULSE 80; RESP 16
--- NOTE | 2017-04-03 05:01 | XR ---
EXAM: XR Left Ankle Complete, 3 or More Views CLINICAL HISTORY: Reason: Pain TECHNIQUE: Frontal, lateral and oblique views of the left ankle. COMPARISON: Current left foot series, dictated separately. FINDINGS: Bones/joints: Unremarkable. No acute fracture. No dislocation. Soft tissues: Mild soft tissue swelling about the ankle. IMPRESSION: 1. Mild soft tissue swelling about the ankle. 2. No acute fracture is seen at this time. Note, nondisplaced fractures may initially be inapparent and short-term follow-up could be considered as clinically indicated.
== END 2017-04-03 04:53 | disposition home or self-care (01) ==
LOC: EC 03:12
DX: M25.572 Pain in left ankle and joints of left foot (principal); F32.9 Major depressive disorder, single episode, unspecified; F17.200 Nicotine dependence, unspecified, uncomplicated; X58.XXXA Exposure to other specified factors, initial encounter; Y99.0 Civilian activity done for income or pay; Y92.69 Other specified industrial and construction area as the place of occurrence of the external cause
CPT/HCPCS: 99283

== ENCOUNTER 2017-04-16 12:25 | Emergency (ER) | payer BC ==
--- NOTE | 2017-04-16 13:06 | ED ---
Upper Extremity HPI - General Chief Complaint: Extremity Injury, Upper Stated Complaint: Right Shoulder Pain Time Seen by Provider: 04/16/17 12:37 Source: patient Mode of arrival: ambulatory Limitations: no limitations - History of Present Illness Initial Comments: 46-year-old male patient presents to emergency department for complaints of right shoulder and arm pain. Patient states that symptoms started about 3 days ago. Patient states he is at work and was getting sharp pains in the right shoulder that radiated down the arm. Patient states that the arm is more swollen than usual. Patient states he was in recently to see an resolution specialist was diagnosed with arthritis of the right shoulder. Patient states that this pain is different than anything is experienced before. Patient states that he is able to move the shoulder however does cause significant pain with range of motion. Patient denies any numbness or tingling to the arm. The patient states that his entire arm especially over the tricep area is very tender. Patient states at work he does lift heavy things as well as performs many repetitive movements with the right arm. Patient denies any head, neck, or back pain. Denies any rash, fever, or chills. He denies any chest pain, shortness of breath, palpitations, dizziness, weakness, abdominal pain, nausea, vomiting, difficulties with bowel movements or urination. - Related Data Home Medications Medication Instructions Recorded Confirmed Citalopram Hydrobromide 20 mg PO DAILY 04/03/17 04/16/17 [Citalopram HBr] busPIRone HCL [busPIRone HCL] 10 mg PO Q4-6H PRN 04/03/17 04/16/17 Previous Rx's Medication Instructions Recorded traMADol HCl [Ultram] 50 mg PO Q4H PRN #20 tab 01/31/17 Ibuprofen [Motrin] 600 mg PO Q6HR PRN #20 tab 04/03/17 Acetaminophen-Codeine 300-30mg 1 tab PO Q6H PRN #15 tablet 04/16/17 [Tylenol #3] Cyclobenzaprine [Flexeril] 10 mg PO TID #15 tab 04/16/17 Allergies Allergy/AdvReac Type Severity Reaction Status Date / Time No Known Allergies Allergy Verified 04/16/17 12:35 Review of Systems ROS Statement: Those systems with pertinent positive or pertinent negative responses have been documented in the HPI. ROS Other: All systems not noted in ROS Statement are negative. Past Medical History Past Medical History: Myocardial Infarction ([place]), Myocardial Infarction (non Q- wave), Osteoarthritis (OA), Pneumonia Additional Past Medical History / Comment(s): Pt states he had a [place] 7-8 months ago but left ER AMA (past medical record indicate he presented to [facility] ER with chest pain and discharged home) and another [place] in 2011 but declined admission, ARTHRITIS in R shoulder, bronchitis. Last Myocardial Infarction Date:: ?Pt states [place] in 04/2016 History of Any Multi-Drug Resistant Organisms: None Reported Past Surgical History: No Surgical Hx Reported Additional Past Surgical History / Comment(s): R calf tendon/muscle repair and skin graft from injury as a 9yr old child. Past Anesthesia/Blood Transfusion Reactions: No Reported Reaction Past Psychological History: Depression Smoking Status: Current every day smoker Past Alcohol Use History: None Reported Past Drug Use History: None Reported, Marijuana - Past Family History Mother Family Medical History: Congestive Heart Failure (CHF), Coronary Artery Disease (CAD) Additional Family Medical History / Comment(s): Mother at the age of 83yrs. Father History Unknown: Yes General Exam Limitations: no limitations General appearance: alert, in no apparent distress Eye exam: Present: normal appearance, PERRL, EOMI. Absent: scleral icterus, conjunctival injection, periorbital swelling ENT exam: Present: normal exam, normal oropharynx, mucous membranes moist Neck exam: Present: normal inspection, full ROM. Absent: tenderness, meningismus, lymphadenopathy Respiratory exam: Present: normal lung sounds bilaterally. Absent: respiratory distress, wheezes, rales, rhonchi, stridor Cardiovascular Exam: Present: regular rate, normal rhythm, normal heart sounds. Absent: systolic murmur, diastolic murmur, rubs, gallop, clicks Extremities exam: Present: tenderness (Patient does have tenderness over the clavicle, acromioclavicular joint, the deltoid, triceps, biceps, forearm, wrist and hand.), normal capillary refill, other (Right arm does exhibit some mild swelling, no pitting. No erythema or warmth noted over the joints in the right arm. Radial pulse is strong and equal bilaterally. Cap refills less than 3 seconds.). Absent: normal inspection, full ROM (Patient does have full range of motion however does have significant pain with forward flexion of about 90, abduction at about 90, is able to extend the shoulder without significant pain. ), pedal edema, joint swelling, calf tenderness Back exam: Present: normal inspection Neurological exam: Present: alert, oriented X3, CN II-XII intact Psychiatric exam: Present: normal affect, normal mood Skin exam: Present: warm, dry, intact, normal color. Absent: rash Course Vital Signs 04/16/17 12:31 Temperature 99.2 F Pulse Rate 87 Respiratory 18 Rate Blood Pressure 127/82 O2 Sat by Pulse 97 Oximetry Medical Decision Making - Medical Decision Making 46-year-old male patient presented today with complaints of right shoulder pain radiated down his arm. Patient was also concerned about some swelling. Physical exam did show some limited range of motion due to pain, mild swelling without pitting, otherwise unremarkable. Ultrasound of the right upper extremity was performed and showed no evidence for DVT. Patient will be discharged home with Tylenol No. 3 for pain control as well as Flexeril. He is given instructions to apply warm heat induced dental stretching exercises to the shoulder. Patient instructed to follow-up with orthopedic associates as he was recently seen there and diagnosed with arthritis of the right shoulder. Patient instructed to return immediately for any new, worsening, or concerning symptoms of [facility] primary care physician for recheck in 1-2 days. - Radiology Data Radiology results: report reviewed, image reviewed US venous Doppler duplex of the right upper extremity shows no evident deep venous ecchymosis in the veins of the right upper extremity is visualized. Dr. Fatima dictated. Disposition Clinical Impression: Shoulder pain Disposition: HOME SELF-CARE Condition: Good Instructions: Shoulder Pain (ED) Additional Instructions: Follow up with orthopedics in 1-2 days for recheck if symptoms haven't improved. Take medications as instructed for pain control. Apply heat to the area. Gentle stretching exercises. Return to immediately for any new, worsening, or concerning symptoms. Prescriptions: Acetaminophen-Codeine 300-30mg [Tylenol #3] 1 tab PO Q6H PRN #15 tablet PRN Reason: Pain Cyclobenzaprine [Flexeril] 10 mg PO TID #15 tab Referrals: Yovani Borrero MD [Primary Care Provider] - 1-2 days Time of Disposition: 14:18
--- NOTE | 2017-04-16 14:02 | US ---
EXAMINATION TYPE: US venous doppler duplex UE RT DATE OF EXAM: 04/16/2017 COMPARISON: NONE CLINICAL HISTORY: Pain. Sharp pain right arm, burning sensation right arm that started last night. Re cently diagnosed with arthritis right shoulder. Intermittent right arm edema SIDE PERFORMED: right Right internal jugular vein, subclavian vein, axillary vein, brachial veins, basilic and cephalic vei ns, radial veins ulnar veins are normal. Right Arm: No evidence of DVT as visualized IMPRESSION: Grayscale, color doppler, spectral doppler imaging performed of the deep veins of the upper extremiti es. There is normal flow, compressability and vascular waveforms. No evident deep venous thrombosis in the veins of the right upper extremity as visualized.
[2017-04-16 14:40] VITALS: BP 132/80; PULSE 82; RESP 17; TEMP 98.7
== END 2017-04-16 14:39 | disposition home or self-care (01) ==
LOC: EC 12:25
DX: M25.511 Pain in right shoulder (principal); F32.9 Major depressive disorder, single episode, unspecified; F17.200 Nicotine dependence, unspecified, uncomplicated; Z79.899 Other long term (current) drug therapy
CPT/HCPCS: 99283

== ENCOUNTER 2017-05-11 22:33 | Emergency (ER) | payer BC ==
[2017-05-11 22:36] VITALS: RESP 18
--- NOTE | 2017-05-11 22:41 | ED ---
Upper Extremity HPI - General Chief Complaint: Extremity Injury, Upper Stated Complaint: R hand injury Time Seen by Provider: 05/11/17 22:37 Source: patient, RN notes reviewed Mode of arrival: ambulatory Limitations: no limitations - History of Present Illness Initial Comments: This a 46-year-old male presents emergency Department chief complaint of right wrist pain. Patient states that he punched a refrigerator one week ago. Patient states that he's had continued pain in his wrist along the radial aspect. Patient states he is no tenderness exactly over the hand and denies any fifth fourth metacarpal region pain. Patient denies any paresthesias. Patient is right-hand dominant and has had no prior fractures to his right wrist. - Related Data Home Medications Medication Instructions Recorded Confirmed Citalopram Hydrobromide 20 mg PO DAILY 04/03/17 05/11/17 [Citalopram HBr] Atorvastatin [Lipitor] 10 mg PO DAILY 05/11/17 05/11/17 Previous Rx's Medication Instructions Recorded Acetaminophen-Codeine 300-30mg 1 tab PO Q4H PRN #20 tablet 05/11/17 [Tylenol #3] Allergies Allergy/AdvReac Type Severity Reaction Status Date / Time No Known Allergies Allergy Verified 05/11/17 22:51 Review of Systems ROS Statement: Those systems with pertinent positive or pertinent negative responses have been documented in the HPI. ROS Other: All systems not noted in ROS Statement are negative. Past Medical History Past Medical History: Myocardial Infarction ([place]), Myocardial Infarction (non Q- wave), Osteoarthritis (OA), Pneumonia Additional Past Medical History / Comment(s): Pt states he had a [place] 7-8 months ago but left ER AMA (past medical record indicate he presented to [facility] ER with chest pain and discharged home) and another [place] in 2011 but declined admission, ARTHRITIS in R shoulder, bronchitis. Last Myocardial Infarction Date:: ?Pt states [place] in 04/2016 History of Any Multi-Drug Resistant Organisms: None Reported Past Surgical History: No Surgical Hx Reported Additional Past Surgical History / Comment(s): R calf tendon/muscle repair and skin graft from injury as a 9yr old child. Past Anesthesia/Blood Transfusion Reactions: No Reported Reaction Past Psychological History: Depression Smoking Status: Former smoker Past Alcohol Use History: None Reported Past Drug Use History: None Reported - Past Family History Mother Family Medical History: Congestive Heart Failure (CHF), Coronary Artery Disease (CAD) Additional Family Medical History / Comment(s): Mother at the age of 83yrs. Father History Unknown: Yes General Exam Limitations: no limitations General appearance: alert, in no apparent distress Head exam: Present: atraumatic, normocephalic, normal inspection Respiratory exam: Present: normal lung sounds bilaterally. Absent: respiratory distress, wheezes, rales, rhonchi, stridor Cardiovascular Exam: Present: regular rate, normal rhythm, normal heart sounds. Absent: systolic murmur, diastolic murmur, rubs, gallop, clicks Extremities exam: Present: other (Right wrist there is tenderness over the radial aspect and pain with range of motion there is no swelling no obvious deformity there is no snuffbox tenderness there is no tenderness over the metacarpals of the right hand. Neurovascular intact) Skin exam: Present: warm, dry, intact, normal color. Absent: rash Course Vital Signs 05/11/17 22:34 Temperature 98.2 F Pulse Rate 87 Respiratory 18 Rate Blood Pressure 135/84 O2 Sat by Pulse 98 Oximetry Medical Decision Making - Medical Decision Making 46-year-old male presented for right wrist pain. There is no acute fracture per radiology reading. Patient will follow-up with orthopedics for recheck return parameters were discussed. Disposition Clinical Impression: Right wrist pain, Sprain of wrist, right Disposition: HOME SELF-CARE Condition: Stable Instructions: Wrist Injury (ED) Additional Instructions: Please return to the Emergency Department if symptoms worsen or any other concerns. Prescriptions: Acetaminophen-Codeine 300-30mg [Tylenol #3] 1 tab PO Q4H PRN #20 tablet PRN Reason: pain Referrals: Yovani Borrero MD [Primary Care Provider] - 1-2 days Bertin Mireles DO [Doctor of Osteopathic Medicine] - 1-2 days
--- NOTE | 2017-05-11 23:48 | XR ---
Exam: XR RIGHT WRIST History: Pain. Comparison: None provided. Technique: 4 views. Findings: No acute displaced fracture or dislocation. No significant arthritic or erosive changes. No soft tissue calcifications. Impression: No acute displaced fracture or dislocation. If there is high concern for occult fracture, consider repeat radiographs in 10 days versus MRI.
[2017-05-11] MEDS ORDERED: Acetaminophen-Codeine 300-30mg TAB PO STA (23:59)
[2017-05-12 00:16] VITALS: BP 143/81; PULSE 78; TEMP 97.8
== END 2017-05-12 00:15 | disposition home or self-care (01) ==
LOC: EC 22:33
DX: S63.501A Unspecified sprain of right wrist, initial encounter (principal); F32.9 Major depressive disorder, single episode, unspecified; Z87.891 Personal history of nicotine dependence; Z79.899 Other long term (current) drug therapy; W22.8XXA Striking against or struck by other objects, initial encounter
CPT/HCPCS: 99283

== ENCOUNTER → 2017-06-10 | Outpatient (CLI) | payer BC ==
--- NOTE | 2017-06-10 08:37 | CT ---
EXAMINATION TYPE: CT wrist RT wo con DATE OF EXAM: 06/10/2017 COMPARISON: Plain films dated 05/26/2017 HISTORY: injury occurred 05/11/2017. pt is still having pain 1st metacarpal area CT DLP: 246 mGycm Automated exposure control for dose reduction was used. Unenhanced CT of the right wrist was performed. Bone and soft tissue window settings are submitted. R econstruction is obtained in the axial sagittal and coronal planes. The ER images are obtained at a [employer] workstation. FINDINGS: Visualized osseous structures are intact. I do not see evidence for displaced fracture or impacted fr acture. No evidence for soft tissue edema or hematoma. If there is concern for ligamentous injury con deck engineer MRI evaluation. Incidental bone island is noted of the distal radius. IMPRESSION: NO EVIDENCE FOR FRACTURE ABOUT THE RIGHT WRIST.
== END ==
LOC: RADCTMAIN 06:48
PROVIDERS: ATTEND Orthopaedic Surgery
DX: M79.641 Pain in right hand (principal)

== ENCOUNTER 2017-07-13 22:49 | Emergency (ER) | payer BC ==
[2017-07-13 22:52] VITALS: RESP 18
--- NOTE | 2017-07-13 23:33 | ED ---
Upper Extremity HPI - General Chief Complaint: Extremity Injury, Upper Stated Complaint: R hand injury Time Seen by Provider: 07/13/17 23:18 Source: patient Mode of arrival: ambulatory Limitations: no limitations - History of Present Illness Initial Comments: 46-year-old male patient presents to the emergency department today for evaluation of right thumb and wrist pain. Patient states that he punched a refrigerator approximately 2 months ago and has been having pain in the hand on and off since then. Patient was seen and evaluated twice in the emergency department for this injury, did have x-rays both times that showed no acute abnormalities. Patient also followed up with orthopedics and underwent CT scanning of the hand and wrist which also showed no acute abnormalities. Patient states he was told by his orthopedic surgeon Dr. Mireles to present to the emergency department for further evaluation if the hand exhibited any further swelling. Patient states that over the last couple of days he has been having increased pain and swelling to the right thumb and wrist. He states that he has been doing increased work with the hand at his place of employment. He states he has been getting sharp shooting pains down to the tips of his fingers. He denies any redness to the hand or wrist. Denies any fever or chills. Denies any difficulty with range of motion to the wrist. Denies any new injury. Denies any numbness or tingling in the hand. - Related Data Home Medications Medication Instructions Recorded Confirmed Citalopram Hydrobromide 20 mg PO DAILY 04/03/17 05/25/17 [Citalopram HBr] Atorvastatin [Lipitor] 10 mg PO DAILY 05/11/17 05/25/17 Allergies Allergy/AdvReac Type Severity Reaction Status Date / Time No Known Allergies Allergy Verified 07/13/17 22:52 Review of Systems ROS Statement: Those systems with pertinent positive or pertinent negative responses have been documented in the HPI. ROS Other: All systems not noted in ROS Statement are negative. Past Medical History Past Medical History: Myocardial Infarction ([place]), Myocardial Infarction (non Q- wave), Osteoarthritis (OA), Pneumonia Additional Past Medical History / Comment(s): Pt states he had a [place] 7-8 months ago but left ER AMA (past medical record indicate he presented to [facility] ER with chest pain and discharged home) and another [place] in 2011 but declined admission, ARTHRITIS in R shoulder, bronchitis. Last Myocardial Infarction Date:: ?Pt states [place] in 04/2016 History of Any Multi-Drug Resistant Organisms: None Reported Past Surgical History: No Surgical Hx Reported Additional Past Surgical History / Comment(s): R calf tendon/muscle repair and skin graft from injury as a 9yr old child. Past Anesthesia/Blood Transfusion Reactions: No Reported Reaction Past Psychological History: Depression Smoking Status: Current every day smoker Past Alcohol Use History: None Reported Past Drug Use History: None Reported - Past Family History Mother Family Medical History: Congestive Heart Failure (CHF), Coronary Artery Disease (CAD) Additional Family Medical History / Comment(s): Mother at the age of 83yrs. Father History Unknown: Yes General Exam Limitations: no limitations General appearance: alert, in no apparent distress, other (This is a well- developed, well-nourished adult male patient in no acute distress. Vital signs upon presentation were temperature 97.7F, pulse 85, respirations 18, blood pressure 135/85, pulse ox 98% on room air.) Respiratory exam: Present: normal lung sounds bilaterally. Absent: respiratory distress, wheezes, rales, rhonchi, stridor Cardiovascular Exam: Present: regular rate, normal rhythm, normal heart sounds. Absent: systolic murmur, diastolic murmur, rubs, gallop, clicks Extremities exam: Present: full ROM (Full range of motion of the thumb and wrist without limitation. Patient does report an increase in pain with range of motion.), tenderness (Tenderness over the last packed of the wrist. ), normal capillary refill, other (Mild right thumb swelling. Skin to the right hand and wrist is pink, warm, and dry. Cap refill is less than 3 seconds. Radial pulse is 2+.). Absent: normal inspection, pedal edema, joint swelling, calf tenderness Neurological exam: Present: alert, oriented X3, CN II-XII intact Psychiatric exam: Present: normal affect, normal mood Skin exam: Present: warm, dry, intact, normal color. Absent: rash Course Vital Signs 07/13/17 07/14/17 22:50 00:22 Temperature 97.7 F 97.8 F Pulse Rate 85 83 Respiratory 18 18 Rate Blood Pressure 135/85 140/88 O2 Sat by Pulse 98 97 Oximetry Medical Decision Making - Medical Decision Making 46-year-old male patient presents to the emergency department today for evaluation of right thumb and wrist pain. Physical exam shows very mild swelling to the right thumb. Patient does exhibit full range of motion, neurovascular status is intact, radial pulses 2+. Repeat x-ray was performed which showed no acute fracture or dislocation, no change from previous examination in May. Patient was placed in an Eitan wrap and given instructions to follow-up with his compensation/benefits specialist in the next 1-2 days. He is instructed to continue taking [id number] ibuprofen for pain control. He is instructed to return here immediately for any new, worsening, or concerning symptoms. He verbalized understanding and agreed with this plan. - Radiology Data Radiology results: report reviewed, image reviewed 3 views of the right wrist are obtained and show the bones and joints are unremarkable no acute fracture or dislocation. Soft tissues are unremarkable with no radiopaque foreign body. Impression by Dr. Bryant. Shows no acute findings or substantial change. Disposition Clinical Impression: Wrist pain, right Disposition: HOME SELF-CARE Condition: Good Instructions: Wrist Injury (ED) Additional Instructions: Use Eitan wrap for comfort and support. Follow-up with the orthopedic physician as soon as possible. Return here immediately for any new, worsening, or concerning symptoms. Referrals: Yovani Borrero MD [Primary Care Provider] - 1-2 days Curtis Mireles DO [Doctor of Osteopathic Medicine] - 1-2 days Time of Disposition: 00:05
--- NOTE | 2017-07-13 23:58 | XR ---
EXAM: XR Right Wrist Complete, 3 or More Views CLINICAL HISTORY: lateral wrist pain, no acute injury, pain with movement TECHNIQUE: Frontal, lateral, scaphoid and oblique views of the right wrist. COMPARISON: 05/26/17 FINDINGS: Bones/joints: Unremarkable. No acute fracture. No dislocation. Soft tissues: Unremarkable. No radiopaque foreign body. IMPRESSION: No acute findings or substantial change.
[2017-07-14 00:23] VITALS: BP 140/88; PULSE 83; TEMP 97.8
== END 2017-07-14 00:22 | disposition home or self-care (01) ==
LOC: EC 22:49
DX: M25.531 Pain in right wrist (principal); M79.644 Pain in right finger(s); I25.2 Old myocardial infarction; F32.9 Major depressive disorder, single episode, unspecified; F17.200 Nicotine dependence, unspecified, uncomplicated; Z79.899 Other long term (current) drug therapy
CPT/HCPCS: 99283

== ENCOUNTER 2017-07-20 23:47 | Emergency (ER) | payer BC ==
[2017-07-20 23:51] VITALS: BP 140/77; PULSE 91; RESP 18; TEMP 98.5
[2017-07-21] MEDS ORDERED: KETOROLAC 30 MG/ML 1 ML VIAL IM STA (00:08)
--- NOTE | 2017-07-21 00:10 | ED ---
General Adult HPI - General Chief complaint: Extremity Injury, Upper Stated complaint: Hand Pain Time Seen by Provider: 07/20/17 23:53 Source: patient Mode of arrival: ambulatory Limitations: no limitations - History of Present Illness Initial comments: FLORECITA is a 46-year-old male who presents to emergency department for valuation of her current right hand pain. Patient reports approximately 2 months ago he injured his hand when he punched a refrigerator door. Patient was evaluated with x-rays at that time and subsequently followed up with orthopedic surgeon who recommended he refrain from punching anything and follow-up if he has any recurrence of the pain in his hand. Patient reports he been doing well, he denies any recurrent trauma. He states that over the past couple of days he's been experiencing worsening pain as well as swelling in his right hand. He's noted that his pinky finger and ring finger seem to feel numb and tingly. The sensation is worse when he flexes his wrist. Patient adamantly denies any recurrent trauma. She states that he has called his orthopedic surgeon to establish a follow-up appointment but the soonest she could get in was on August 15. Patient states he's been intermittently taking Tylenol and Motrin without any significant relief of his pain. Denies any other complaints including fevers, chills, nausea, vomiting, chest pain, shortness of breath, abdominal pain or change in bowel or bladder habits. - Related Data Home Medications Medication Instructions Recorded Confirmed Citalopram Hydrobromide 20 mg PO DAILY 04/03/17 07/20/17 [Citalopram HBr] Atorvastatin [Lipitor] 10 mg PO DAILY 05/11/17 07/20/17 Previous Rx's Medication Instructions Recorded Diclofenac Sodium [Voltaren Gel] 4 gram TOPICAL BID #100 gram 07/21/17 Ibuprofen 800 mg PO TID #30 tablet 07/21/17 Allergies Allergy/AdvReac Type Severity Reaction Status Date / Time No Known Allergies Allergy Verified 07/20/17 23:51 Review of Systems ROS Statement: Those systems with pertinent positive or pertinent negative responses have been documented in the HPI. Constitutional: Denies: fever, chills Respiratory: Denies: cough Cardiovascular: Denies: chest pain Gastrointestinal: Denies: abdominal pain, nausea, vomiting Skin: Denies: rash, lesions Neurological: Reports: paresthesias (4th and 5th finger of right hand). Denies : weakness Hematological/Lymphatic: Denies: easy bleeding, easy bruising Past Medical History Past Medical History: Myocardial Infarction (NE), Myocardial Infarction (non Q- wave), Osteoarthritis (OA), Pneumonia Additional Past Medical History / Comment(s): Pt states he had a NE 7-8 months ago but left ER AMA (past medical record indicate he presented to [facility] ER with chest pain and discharged home) and another NE in 2011 but declined admission, ARTHRITIS in R shoulder, bronchitis. Last Myocardial Infarction Date:: ?Pt states NE in 04/2016 History of Any Multi-Drug Resistant Organisms: None Reported Past Surgical History: No Surgical Hx Reported Additional Past Surgical History / Comment(s): R calf tendon/muscle repair and skin graft from injury as a 9yr old child. Past Anesthesia/Blood Transfusion Reactions: No Reported Reaction Past Psychological History: Anxiety, Depression Smoking Status: Current every day smoker Past Alcohol Use History: None Reported Past Drug Use History: None Reported - Past Family History Mother Family Medical History: Congestive Heart Failure (CHF), Coronary Artery Disease (CAD) Additional Family Medical History / Comment(s): Mother at the age of 83yrs. Father History Unknown: Yes General Exam Limitations: no limitations General appearance: alert, in no apparent distress Head exam: Present: atraumatic, normocephalic Eye exam: Present: normal appearance, PERRL Neck exam: Present: full ROM Respiratory exam: Absent: respiratory distress Cardiovascular Exam: Present: regular rate, normal rhythm GI/Abdominal exam: Present: soft. Absent: distended Right Elbow exam: Present: full ROM. Absent: tenderness, swelling Forearm Wrist exam: Present: full ROM, tenderness, swelling. Absent: laceration , ecchymosis, deformity, crepitus, dislocation, erythema, tenderness over anatomical snuff box, pain with axial thumb loading Hand Wrist exam: Present: full ROM, tenderness, swelling. Absent: abrasion, laceration, ecchymosis, deformity, crepitus, dislocation, erythema, amputation, nail avulsion, subungual hematoma Course Vital Signs 07/20/17 23:50 Temperature 98.5 F Pulse Rate 91 Respiratory 18 Rate Blood Pressure 140/77 O2 Sat by Pulse 98 Oximetry Medical Decision Making - Medical Decision Making Patient was seen and evaluated, history was obtained from the patient Patient with history of trauma 2 months ago, no recurrent trauma Patient now experiencing numbness, tingling, or discomfort in the median nerve distribution Physical exam with positive Tinel's and Phalen's sign Right hand mildly swollen, no erythema or signs of infection. Patient with provocative testing which elicits symptoms of carpal tunnel Exam was discussed with the patient. I advised him that I suspect he is suffering from carpal tunnel. Advised him that he can splint the wrist, avoid repetitive motions and to follow-up with his orthopedic surgeon for reevaluation and testing. Patient was given a shot of IM Toradol for analgesia and discharged home with Voltaren gel as well as by mouth Motrin. I advised the patient that he should try Voltaren gel for pain relief, if he gets no relief from this he can try taking the by mouth Motrin instead. All questions pertaining to care were answered to the best of my ability. Patient's breast understanding of care plan and was discharged home in stable condition Disposition Clinical Impression: Chronic pain of right hand, Carpal tunnel syndrome of right wrist Disposition: HOME SELF-CARE Condition: Good Instructions: Paresthesia (ED) Prescriptions: Diclofenac Sodium [Voltaren Gel] 4 gram TOPICAL BID #100 gram Ibuprofen 800 mg PO TID #30 tablet Referrals: Yovani Borrero MD [Primary Care Provider] - 1-2 days Time of Disposition: 00:09
== END 2017-07-21 00:36 | disposition home or self-care (01) ==
LOC: EC 23:47
DX: M79.641 Pain in right hand (principal); G89.29 Other chronic pain; G56.01 Carpal tunnel syndrome, right upper limb; F32.9 Major depressive disorder, single episode, unspecified; F17.200 Nicotine dependence, unspecified, uncomplicated; Z79.899 Other long term (current) drug therapy
CPT/HCPCS: 99283; 96372; J1885

== ENCOUNTER 2017-07-29 17:14 | Emergency (ER) | payer BC ==
[2017-07-29 17:24] VITALS: BP 137/87; PULSE 89; RESP 16; TEMP 98.8
--- NOTE | 2017-07-29 17:42 | ED ---
General Adult HPI - General Chief complaint: Extremity Injury, Upper Stated complaint: R hand injury Time Seen by Provider: 07/29/17 17:31 Source: patient, RN notes reviewed, old records reviewed Mode of arrival: ambulatory Limitations: no limitations - History of Present Illness Initial comments: patient is a 46-year-old male who presents emergency room today with chief complaint of pain and swelling to the right hand. He doesn't to an injury that occurred 3 months ago when he punched a refrigerator. He states that he's had pain on and off since that time. He does not that he's been seen here in the emergency room several times for the same complaint. He states he has talked orthopedics does not have an appointment until August 18. He states that has been using ibuprofens currently out of this prescription. Patient does admit that it's worse with certain movements of the right hand. Patient denies any new injury or trauma.Patient denies any recent fever, chills, shortness of breath, chest pain, back pain, abdominal pain, nausea or vomiting, headaches or visual changes, or any other complaints. - Related Data Home Medications Medication Instructions Recorded Confirmed Citalopram Hydrobromide 20 mg PO DAILY 04/03/17 07/20/17 [Citalopram HBr] Atorvastatin [Lipitor] 10 mg PO DAILY 05/11/17 07/20/17 Previous Rx's Medication Instructions Recorded Diclofenac Sodium [Voltaren Gel] 4 gram TOPICAL BID #100 gram 07/21/17 Ibuprofen 800 mg PO TID #30 tablet 07/21/17 Ibuprofen [Motrin] 800 mg PO Q6HR #30 tab 07/29/17 Allergies Allergy/AdvReac Type Severity Reaction Status Date / Time No Known Allergies Allergy Verified 07/29/17 17:24 Review of Systems ROS Statement: Those systems with pertinent positive or pertinent negative responses have been documented in the HPI. ROS Other: All systems not noted in ROS Statement are negative. Past Medical History Past Medical History: Myocardial Infarction (NC), Myocardial Infarction (non Q- wave), Osteoarthritis (OA), Pneumonia Additional Past Medical History / Comment(s): Pt states he had a NC 7-8 months ago but left ER AMA (past medical record indicate he presented to [facility] ER with chest pain and discharged home) and another NC in 2011 but declined admission, ARTHRITIS in R shoulder, bronchitis. Last Myocardial Infarction Date:: ?Pt states NC in 04/2016 History of Any Multi-Drug Resistant Organisms: None Reported Past Surgical History: No Surgical Hx Reported Additional Past Surgical History / Comment(s): R calf tendon/muscle repair and skin graft from injury as a 9yr old child. Past Anesthesia/Blood Transfusion Reactions: No Reported Reaction Past Psychological History: Anxiety, Depression Smoking Status: Current every day smoker Past Alcohol Use History: None Reported Past Drug Use History: None Reported - Past Family History Mother Family Medical History: Congestive Heart Failure (CHF), Coronary Artery Disease (CAD) Additional Family Medical History / Comment(s): Mother at the age of 83yrs. Father History Unknown: Yes General Exam - General Exam Comments Initial Comments: General: The patient is awake and alert, in no distress, and does not appear acutely ill. Eye: Pupils are equal, round and reactive to light, extra-ocular movements are intact. No nystagmus. There is normal conjunctiva bilaterally. No signs of icterus. Ears, nose, mouth and throat: There are moist mucous membranes and no oral lesions. Neck: The neck is supple, there is no tenderness or JVD. Musculoskeletal: Normal ROM. mild tenderness over the distal metacarpal bones 2 through 5. Strength 5/5. Sensation intact. Pulses equal bilaterally 2+. Neurological: A&O x 3. CN II-XII intact, There are no obvious motor or sensory deficits. Coordination appears grossly intact. Speech is normal. Skin: Skin is warm and dry and no rashes or lesions are noted. Psychiatric: Cooperative, appropriate mood & affect, normal judgment. Limitations: no limitations Course Vital Signs 07/29/17 17:22 Temperature 98.8 F Pulse Rate 89 Respiratory 16 Rate Blood Pressure 137/87 O2 Sat by Pulse 97 Oximetry Medical Decision Making - Medical Decision Making he has had multiple ER visits for the same complaint. He is advised to call orthopedics. Is requesting a work note to be written until August 18 when he can see a specialist. Advised that we cannot right eye, time off. Advised that he needs follow-up the family doctor or orthopedics. We will give him a next 2 days off to help rest and elevate for her symptoms. Also continue patient on ibuprofen. Disposition Clinical Impression: Chronic pain of right hand Disposition: HOME SELF-CARE Condition: Good Instructions: Arthralgia (ED) Additional Instructions: Please continue elevating and ice the affected area. Please use ibuprofen as prescribed. Please follow-up with the orthopedic doctor family doctor as discussed. Please return to emergency room for any other concerns. Prescriptions: Ibuprofen [Motrin] 800 mg PO Q6HR #30 tab Referrals: Yovani Borrero MD [Primary Care Provider] - 1-2 days Curtis Mireles DO [Doctor of Osteopathic Medicine] - 1-2 days Time of Disposition: 17:37
== END 2017-07-29 17:55 | disposition home or self-care (01) ==
LOC: EC 17:14
DX: G89.29 Other chronic pain (principal); M79.641 Pain in right hand; F32.9 Major depressive disorder, single episode, unspecified; F41.9 Anxiety disorder, unspecified; F17.200 Nicotine dependence, unspecified, uncomplicated; Z79.899 Other long term (current) drug therapy
CPT/HCPCS: 99283

== ENCOUNTER 2017-12-01 18:01 | Emergency (ER) | payer BC, OTHER ==
--- NOTE | 2017-12-01 18:19 | ED ---
General Adult HPI - General Source: patient, RN notes reviewed, old records reviewed Mode of arrival: wheelchair Limitations: no limitations <Hernán Woodard - Last Filed: 12/01/17 18:44> <Deric Browning - Last Filed: 12/01/17 21:26> - General Chief complaint: Chest Pain Stated complaint: Chest pain Time Seen by Provider: 12/01/17 18:07 - History of Present Illness Initial comments: This is a 47-year-old male to the ER for evaluation. Patient states he's having chest pain chest pain and increased stress. Symptoms started this morning. Episodic. This patient states he does have history of IA, minor heart attack, no stents. No recent travel history no sick contacts. Patient does cervical anxiety is also had anxiety attacks in the past. Heart attacks. No fever no cough or congestion. Patient did have some shortness of breath as well as today and yesterday patient does smoke (Hernán Woodard) - Related Data Home Medications Medication Instructions Recorded Confirmed No Known Home Medications [No 12/01/17 12/01/17 Known Home Medications] Allergies Allergy/AdvReac Type Severity Reaction Status Date / Time No Known Allergies Allergy Verified 12/01/17 18:39 Review of Systems ROS Other: All systems not noted in ROS Statement are negative. <Hernán Woodard - Last Filed: 12/01/17 18:44> ROS Other: All systems not noted in ROS Statement are negative. <Deric Browning - Last Filed: 12/01/17 21:26> ROS Statement: Those systems with pertinent positive or pertinent negative responses have been documented in the HPI. Past Medical History Past Medical History: Myocardial Infarction ([place]), Myocardial Infarction (non Q- wave), Osteoarthritis (OA), Pneumonia Additional Past Medical History / Comment(s): Pt states he had a IA 7-8 months ago but left ER AMA (past medical record indicate he presented to [facility] ER with chest pain and discharged home) and another IA in 2011 but declined admission, ARTHRITIS in R shoulder, bronchitis. Last Myocardial Infarction Date:: ?Pt states IA in 04/2016 History of Any Multi-Drug Resistant Organisms: None Reported Past Surgical History: No Surgical Hx Reported Additional Past Surgical History / Comment(s): R calf tendon/muscle repair and skin graft from injury as a 9yr old child. Past Anesthesia/Blood Transfusion Reactions: No Reported Reaction Past Psychological History: Anxiety, Depression Smoking Status: Current every day smoker Past Alcohol Use History: None Reported Past Drug Use History: None Reported - Past Family History Mother Family Medical History: Congestive Heart Failure (CHF), Coronary Artery Disease (CAD) Additional Family Medical History / Comment(s): Mother at the age of 83yrs. Father History Unknown: Yes <Hernán Woodard - Last Filed: 12/01/17 18:44> General Exam Limitations: no limitations General appearance: alert, in no apparent distress, anxious Head exam: Present: atraumatic, normocephalic, normal inspection Eye exam: Present: normal appearance, PERRL, EOMI. Absent: scleral icterus, conjunctival injection, periorbital swelling ENT exam: Present: normal exam, mucous membranes moist Neck exam: Present: normal inspection. Absent: tenderness, meningismus, lymphadenopathy Respiratory exam: Present: normal lung sounds bilaterally. Absent: respiratory distress, wheezes, rales, rhonchi, stridor Cardiovascular Exam: Present: regular rate, normal rhythm, normal heart sounds. Absent: systolic murmur, diastolic murmur, rubs, gallop, clicks GI/Abdominal exam: Present: soft, normal bowel sounds. Absent: distended, tenderness, guarding, rebound, rigid Extremities exam: Present: normal inspection, full ROM, normal capillary refill. Absent: tenderness, pedal edema, joint swelling, calf tenderness Back exam: Present: normal inspection Neurological exam: Present: alert, oriented X3, CN II-XII intact Psychiatric exam: Present: normal affect, normal mood Skin exam: Present: warm, dry, intact, normal color. Absent: rash <Hernán Woodard - Last Filed: 12/01/17 18:44> Course <Hernán Woodard - Last Filed: 12/01/17 18:44> <Deric Browning - Last Filed: 12/01/17 21:26> Vital Signs 12/01/17 12/01/17 12/01/17 18:05 19:15 21:23 Temperature 97.3 F L 97.3 F L 98.6 F Pulse Rate 91 85 80 Respiratory 18 16 18 Rate Blood Pressure 131/82 139/80 121/76 O2 Sat by Pulse 98 97 99 Oximetry - Reevaluation(s) Reevaluation #1: 12/01/17 18:40 Patient stating he has had chest pain for quite some time, he is mostly complaining of suicidal thoughts at this time (Hernán Woodard) EKG Findings - EKG Comments: EKG Findings:: EKG shows sinus rhythm rate of 87, NH 150, QRS 84, QTC 416 <Hernán Woodard - Last Filed: 12/01/17 18:44> Medical Decision Making - Lab Data Result diagrams: 12/01/17 18:20 12/01/17 18:20 <Hernán Woodard - Last Filed: 12/01/17 18:44> - Lab Data Result diagrams: 12/01/17 18:20 12/01/17 18:20 <Deric Browning - Last Filed: 12/01/17 21:26> - Lab Data Lab Results 12/01/17 12/01/17 12/01/17 Range/Units 18:20 18:20 18:20 WBC 9.5 (3.8-10.6) k/uL RBC 5.19 (4.30-5.90) m/uL Hgb 15.7 (13.0-17.5) gm/dL Hct 46.2 (39.0-53.0) % MCV 89.1 (80.0-100.0) fL MCH 30.2 (25.0-35.0) pg MCHC 33.9 (31.0-37.0) g/dL RDW 12.5 (11.5-15.5) % Plt Count 325 (150-450) k/uL Neutrophils % 70 % Lymphocytes % 21 % Monocytes % 5 % Eosinophils % 2 % Basophils % 0 % Neutrophils # 6.6 (1.3-7.7) k/uL Lymphocytes # 2.0 (1.0-4.8) k/uL Monocytes # 0.4 (0-1.0) k/uL Eosinophils # 0.2 (0-0.7) k/uL Basophils # 0.0 (0-0.2) k/uL PT (9.0-12.0) sec INR (<1.2) APTT (22.0-30.0) sec Sodium 138 (137-145) mmol/L Potassium 4.1 (3.5-5.1) mmol/L Chloride 109 H (98-107) mmol/L Carbon Dioxide 21 L (22-30) mmol/L Anion Gap 8 mmol/L BUN 11 (9-20) mg/dL Creatinine 0.70 (0.66-1.25) mg/dL Est GFR (CKD-EPI)AfAm >90 (>60 ml/min/1.73 sqM) Est GFR (CKD-EPI)NonAf >90 (>60 ml/min/1.73 sqM) Glucose 94 (74-99) mg/dL Calcium 8.6 (8.4-10.2) mg/dL Magnesium 2.0 (1.6-2.3) mg/dL Total Bilirubin 0.3 (0.2-1.3) mg/dL AST 24 (17-59) U/L ALT 42 (21-72) U/L Alkaline Phosphatase 50 (38-126) U/L Total Creatine Kinase 120 (55-170) U/L CK-MB (CK-2) 0.9 (0.0-2.4) ng/mL CK-MB (CK-2) Rel Index 0.8 Troponin I <0.012 (0.000-0.034) ng/mL Total Protein 5.5 L (6.3-8.2) g/dL Albumin 3.3 L (3.5-5.0) g/dL Lipase 94 (23-300) U/L Urine Opiates Screen (NotDetected) Ur Oxycodone Screen (NotDetected) Urine Methadone Screen (NotDetected) Ur Propoxyphene Screen (NotDetected) Ur Barbiturates Screen (NotDetected) U Tricyclic Antidepress (NotDetected) Ur Phencyclidine Scrn (NotDetected) Ur Amphetamines Screen (NotDetected) U Methamphetamines Scrn (NotDetected) U Benzodiazepines Scrn (NotDetected) Urine Cocaine Screen (NotDetected) U Marijuana (THC) Screen (NotDetected) 12/01/17 12/01/17 Range/Units 18:20 19:36 WBC (3.8-10.6) k/uL RBC (4.30-5.90) m/uL Hgb (13.0-17.5) gm/dL Hct (39.0-53.0) % MCV (80.0-100.0) fL MCH (25.0-35.0) pg MCHC (31.0-37.0) g/dL RDW (11.5-15.5) % Plt Count (150-450) k/uL Neutrophils % % Lymphocytes % % Monocytes % % Eosinophils % % Basophils % % Neutrophils # (1.3-7.7) k/uL Lymphocytes # (1.0-4.8) k/uL Monocytes # (0-1.0) k/uL Eosinophils # (0-0.7) k/uL Basophils # (0-0.2) k/uL PT 10.3 (9.0-12.0) sec INR 1.1 (<1.2) APTT 25.2 (22.0-30.0) sec Sodium (137-145) mmol/L Potassium (3.5-5.1) mmol/L Chloride (98-107) mmol/L Carbon Dioxide (22-30) mmol/L Anion Gap mmol/L BUN (9-20) mg/dL Creatinine (0.66-1.25) mg/dL Est GFR (CKD-EPI)AfAm (>60 ml/min/1.73 sqM) Est GFR (CKD-EPI)NonAf (>60 ml/min/1.73 sqM) Glucose (74-99) mg/dL Calcium (8.4-10.2) mg/dL Magnesium (1.6-2.3) mg/dL Total Bilirubin (0.2-1.3) mg/dL AST (17-59) U/L ALT (21-72) U/L Alkaline Phosphatase (38-126) U/L Total Creatine Kinase (55-170) U/L CK-MB (CK-2) (0.0-2.4) ng/mL CK-MB (CK-2) Rel Index Troponin I (0.000-0.034) ng/mL Total Protein (6.3-8.2) g/dL Albumin (3.5-5.0) g/dL Lipase (23-300) U/L Urine Opiates Screen Not Detected (NotDetected) Ur Oxycodone Screen Not Detected (NotDetected) Urine Methadone Screen Not Detected (NotDetected) Ur Propoxyphene Screen Not Detected (NotDetected) Ur Barbiturates Screen Not Detected (NotDetected) U Tricyclic Antidepress Not Detected (NotDetected) Ur Phencyclidine Scrn Not Detected (NotDetected) Ur Amphetamines Screen Not Detected (NotDetected) U Methamphetamines Scrn Not Detected (NotDetected) U Benzodiazepines Scrn Not Detected (NotDetected) Urine Cocaine Screen Not Detected (NotDetected) U Marijuana (THC) Screen Not Detected (NotDetected) Disposition <Hernán Woodard - Last Filed: 12/01/17 18:44> <Deric Browning - Last Filed: 12/01/17 21:26> Clinical Impression: Atypical chest pain, Anxiety, Mood disorder Disposition: HOME SELF-CARE Condition: Good Instructions: Chest Pain (ED), Mood Disorders (ED) Referrals: None,Stated [Primary Care Provider] - 1-2 days
[2017-12-01 18:33] LABS: Basophils % (A) 0 %; Eosinophils # (A) 0.2 k/uL (0-0.7); Eosinophils % (A) 2 %; HCT 46.2 % (39.0-53.0); HGB 15.7 gm/dL (13.0-17.5); Lymphocytes % (A) 21 %; MCH 30.2 pg (25.0-35.0); MCHC 33.9 g/dL (31.0-37.0); MCV 89.1 fL (80.0-100.0); Mean Platelet Volume 6.5; Monocytes # (A) 0.4 k/uL (0-1.0); Monocytes % (A) 5 %; Neutrophils # (A) 6.6 k/uL (1.3-7.7); Neutrophils % (A) 70 %; Platelet Count 325 k/uL (150-450); RBC 5.19 m/uL (4.30-5.90); RDW 12.5 % (11.5-15.5); WBC 9.5 k/uL (3.8-10.6)
[2017-12-01 18:41] LABS: ALT 42 U/L (21-72); AST 24 U/L (17-59); Albumin 3.3 g/dL (3.5-5.0); Alkaline Phosphatase 50 U/L (38-126); Anion Gap 8 mmol/L; Blood Urea Nitrogen 11 mg/dL (9-20); Calcium 8.6 mg/dL (8.4-10.2); Carbon Dioxide 21 mmol/L (22-30); Chloride 109 mmol/L (98-107); Glucose 94 mg/dL (74-99); Lipase 94 U/L (23-300); Potassium 4.1 mmol/L (3.5-5.1); Sodium 138 mmol/L (137-145); Total Bilirubin 0.3 mg/dL (0.2-1.3); Total Protein 5.5 g/dL (6.3-8.2)
--- NOTE | 2017-12-01 18:41 | XR ---
EXAMINATION TYPE: XR chest 2V DATE OF EXAM: 12/01/2017 COMPARISON: 03/19/2017 HISTORY: Chest pain TECHNIQUE: Frontal and lateral views of the chest are obtained. FINDINGS: Heart and mediastinum are normal. Lungs are clear. Diaphragm is normal. There are chest le ads. Bony thorax appears normal. IMPRESSION: Normal chest. No change.
[2017-12-01 18:42] LABS: INR 1.1 (<1.2); Partial Thromboplastin Time 25.2 sec (22.0-30.0); Prothrombin Time 10.3 sec (9.0-12.0)
[2017-12-01 18:52] LABS: Creatine Kinase 120 U/L (55-170)
[2017-12-01 19:04] LABS: Creatine Kinase MB 0.9 ng/mL (0.0-2.4); Troponin I <0.012 ng/mL (0.000-0.034)
[2017-12-01 19:52] LABS: Amphetamine Screen,Urine Not Detected (NotDetected); Barbiturate Screen,Urine Not Detected (NotDetected); Benzodiazepines Screen,Urine Not Detected (NotDetected); Cocaine Screen,Urine Not Detected (NotDetected); Methadone Screen, Urine Not Detected (NotDetected); Opiate Screen,Urine Not Detected (NotDetected); Oxycodone Screen, Urine Not Detected (NotDetected); Phencyclidine Screen,Urine Not Detected (NotDetected); Tricyclic Antidepressant,Urine Not Detected (NotDetected); Urn Cannabinoid Scrn Not Detected (NotDetected)
[2017-12-01 21:25] VITALS: BP 121/76; PULSE 80; RESP 18; TEMP 98.6
== END 2017-12-01 21:35 | disposition home or self-care (01) ==
LOC: EC 18:01
DX: R07.89 Other chest pain (principal); F41.9 Anxiety disorder, unspecified; F32.9 Major depressive disorder, single episode, unspecified; I25.2 Old myocardial infarction; F17.200 Nicotine dependence, unspecified, uncomplicated; Z82.49 Family history of ischemic heart disease and other diseases of the circulatory system
CPT/HCPCS: 36415; 71046; 80053; 80306; 82075; 82550; 82553; 83690; 83735; 84484; 85025; 85610; 85730; 93005; 99285

== ENCOUNTER 2017-12-14 15:53 | Emergency (ER) | payer BC, OTHER ==
[2017-12-14 16:11] VITALS: BP 132/90; PULSE 90; RESP 18; TEMP 97.9
--- NOTE | 2017-12-14 16:49 | XR ---
EXAMINATION TYPE: XR wrist complete RT DATE OF EXAM: 12/14/2017 COMPARISON: 07/13/2017 HISTORY: 47-year-old male with pain during pushing injury TECHNIQUE: 4 views FINDINGS: Stable bone island distal radial epiphysis. The radiocarpal and distal radial ulnar joints as well as the midcarpal compartment appear intact. No acute fracture, subluxation, or dislocation seen. IMPRESSION: No acute osseous abnormality seen.
--- NOTE | 2017-12-14 16:58 | ED ---
Upper Extremity HPI - General Chief Complaint: Extremity Injury, Upper Stated Complaint: ARM SWELLING Time Seen by Provider: 12/14/17 16:13 Source: patient, RN notes reviewed, old records reviewed Mode of arrival: ambulatory Limitations: no limitations - History of Present Illness Initial Comments: 47-year-old male present mentation complaint of right wrist pain and swelling. He reports that he was at work and pushing something heavy. He felt a pop in his wrist. Patient reports that he is right-handed. He denies any previous injuries to this wrist or hand. He reports these notices welling. He reports he has occasional shooting pain down the hand. Reports the pain is worse with extension. Denies any other symptoms at this time.Patient denies any recent fever, chills, shortness of breath, chest pain, back pain, abdominal pain, nausea vomiting, numbness or tingling, dysuria or hematuria, constipation or diarrhea, headaches or visual changes, or any other current symptoms - Related Data Previous Rx's Medication Instructions Recorded Ibuprofen [Motrin] 600 mg PO Q8HR PRN #20 tab 12/14/17 Allergies Allergy/AdvReac Type Severity Reaction Status Date / Time No Known Allergies Allergy Verified 12/01/17 18:39 Review of Systems ROS Statement: Those systems with pertinent positive or pertinent negative responses have been documented in the HPI. ROS Other: All systems not noted in ROS Statement are negative. Past Medical History Past Medical History: Myocardial Infarction ([place]), Myocardial Infarction (non Q- wave), Osteoarthritis (OA), Pneumonia Additional Past Medical History / Comment(s): Pt states he had a [place] 7-8 months ago but left ER AMA (past medical record indicate he presented to [facility] ER with chest pain and discharged home) and another [place] in 2011 but declined admission, ARTHRITIS in R shoulder, bronchitis. Last Myocardial Infarction Date:: ?Pt states NC in 04/2016 History of Any Multi-Drug Resistant Organisms: None Reported Past Surgical History: No Surgical Hx Reported Additional Past Surgical History / Comment(s): R calf tendon/muscle repair and skin graft from injury as a 9yr old child. Past Anesthesia/Blood Transfusion Reactions: No Reported Reaction Past Psychological History: Anxiety, Depression Smoking Status: Current every day smoker Past Alcohol Use History: None Reported Past Drug Use History: None Reported - Past Family History Mother Family Medical History: Congestive Heart Failure (CHF), Coronary Artery Disease (CAD) Additional Family Medical History / Comment(s): Mother at the age of 83yrs. Father History Unknown: Yes General Exam - General Exam Comments Initial Comments: 47-year-old male. No distress. Limitations: no limitations General appearance: alert, in no apparent distress Head exam: Present: atraumatic, normocephalic, normal inspection Eye exam: Present: normal appearance, PERRL, EOMI. Absent: scleral icterus, conjunctival injection, periorbital swelling ENT exam: Present: normal exam Neck exam: Present: normal inspection. Absent: tenderness, meningismus, lymphadenopathy Respiratory exam: Present: normal lung sounds bilaterally. Absent: respiratory distress, wheezes, rales, rhonchi, stridor Cardiovascular Exam: Present: regular rate, normal rhythm, normal heart sounds. Absent: systolic murmur, diastolic murmur, rubs, gallop, clicks GI/Abdominal exam: Present: soft, normal bowel sounds. Absent: distended, tenderness, guarding, rebound, rigid Right Upper Arm exam: Present: normal inspection, full ROM Elbow exam: Present: normal inspection, full ROM Forearm Wrist exam: Present: full ROM, tenderness (Patient reports tenderness over the distal ulna.), swelling ( is some minor swelling noted to the wrist.). Absent: normal inspection Hand Wrist exam: Present: normal inspection, full ROM Neuro motor exam: Present: wrist extension intact, thumb opposition intact, thumb IP flexion intact, thumb adduction intact Vascular: Present: normal capillary refill Back exam: Present: normal inspection Neurological exam: Present: alert Course Vital Signs 12/14/17 16:00 Temperature 97.9 F Pulse Rate 90 Respiratory 18 Rate Blood Pressure 132/90 O2 Sat by Pulse 96 Oximetry Medical Decision Making - Medical Decision Making 47-year-old male present : Right wrist pain and swelling and popping sensation after pushing something at work. He has full range of motion but reports pain with extension. He has normal vascular status, normal sensation. 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 Patient's x-ray reviewed and negative for any other maladies. Given an Eitan wrap for pain. Discussed and temperature medication such as Motrin Tylenol. Discussed following up with orthopedic if symptoms are continuing to persist. All questions answered and return parameters were discussed. - Radiology Data Radiology results: report reviewed X-ray of the right wrist was reviewed and negative for any acute process. Disposition Clinical Impression: Right wrist sprain Disposition: HOME SELF-CARE Condition: Good Instructions: Wrist Sprain (ED) Additional Instructions: Rest, ice, elevate extremity. Wear the Eitan wrap. Follow-up with orthopedic if symptoms are continuing to persist after one to 2 days of icing and elevating the arm. Prescriptions: Ibuprofen [Motrin] 600 mg PO Q8HR PRN #20 tab PRN Reason: Pain Referrals: None,Stated [Primary Care Provider] - 1-2 days Jeff Toribio MD [STAFF PHYSICIAN] - 1-2 days Time of Disposition: 17:16
== END 2017-12-14 17:20 | disposition home or self-care (01) ==
LOC: EC 15:53
DX: S63.501A Unspecified sprain of right wrist, initial encounter (principal); F17.200 Nicotine dependence, unspecified, uncomplicated; X58.XXXA Exposure to other specified factors, initial encounter; Y99.0 Civilian activity done for income or pay
CPT/HCPCS: 99284

== ENCOUNTER 2018-02-12 06:08 | Emergency (ER) | payer SELFPAY ==
--- NOTE | 2018-02-12 07:18 | XR ---
EXAMINATION TYPE: XR shoulder complete RT DATE OF EXAM: 02/12/2018 CLINICAL HISTORY: Right shoulder pain for 2 weeks. TECHNIQUE: Three views of the right shoulder are obtained. COMPARISON: Right shoulder x-ray August 01, 2017. FINDINGS: There is no acute fracture/dislocation evident in the right shoulder. Stable mild narrowin g at acromioclavicular joint. Glenohumeral joint is maintained. The visualized ribs are intact and u nremarkable. IMPRESSION: There is no acute fracture or dislocation in the right shoulder. No significant change f rom prior.
[2018-02-12] MEDS ORDERED: ORPHENADRINE 30 MG/ML 2 ML VIAL IM STA (07:33)
[2018-02-12] MEDS ORDERED: KETOROLAC 60 MG/2 ML VIAL IM STA (07:33)
--- NOTE | 2018-02-12 07:37 | ED ---
General Adult HPI - General Chief complaint: Extremity Problem,Nontraumatic Stated complaint: Right shoulder pain Time Seen by Provider: 02/12/18 07:05 Source: patient, RN notes reviewed Mode of arrival: ambulatory Limitations: no limitations - History of Present Illness Initial comments: Patient is a pleasant 47-year-old male presenting to the emergency Department with complaints of right shoulder pain. Patient thinks he did have similar symptoms once previously however no reported no Better. Symptoms this time started around 2 weeks ago. Discomfort mostly starts in the right shoulder and radiates down the arm. Discomfort is greatly increased with movement. No rash. No trauma. No chest or back pain. No dyspnea. - Related Data Previous Rx's Medication Instructions Recorded methylPREDNISolone Dose Pack 24 mg PO DAILY #1 tab 02/12/18 [Medrol Dose Pack] Allergies Allergy/AdvReac Type Severity Reaction Status Date / Time No Known Allergies Allergy Verified 02/12/18 07:48 Review of Systems ROS Statement: Those systems with pertinent positive or pertinent negative responses have been documented in the HPI. ROS Other: All systems not noted in ROS Statement are negative. Constitutional: Denies: fever Eyes: Denies: eye pain ENT: Denies: ear pain Respiratory: Denies: cough Cardiovascular: Denies: chest pain Endocrine: Denies: fatigue Gastrointestinal: Denies: abdominal pain Genitourinary: Denies: dysuria Musculoskeletal: Denies: back pain Skin: Denies: rash Neurological: Denies: headache Past Medical History Past Medical History: Myocardial Infarction ([place]), Myocardial Infarction (non Q- wave), Osteoarthritis (OA), Pneumonia Additional Past Medical History / Comment(s): Pt states he had a [place] 7-8 months ago but left ER AMA (past medical record indicate he presented to [facility] ER with chest pain and discharged home) and another [place] in 2011 but declined admission, ARTHRITIS in R shoulder, bronchitis. Last Myocardial Infarction Date:: ?Pt states [place] in 04/2016 History of Any Multi-Drug Resistant Organisms: None Reported Past Surgical History: No Surgical Hx Reported Additional Past Surgical History / Comment(s): R calf tendon/muscle repair and skin graft from injury as a 9yr old child. Past Anesthesia/Blood Transfusion Reactions: No Reported Reaction Past Psychological History: Anxiety, Depression Smoking Status: Current every day smoker Past Alcohol Use History: None Reported Past Drug Use History: None Reported - Past Family History Mother Family Medical History: Congestive Heart Failure (CHF), Coronary Artery Disease (CAD) Additional Family Medical History / Comment(s): Mother at the age of 83yrs. Father History Unknown: Yes General Exam Limitations: no limitations General appearance: alert, in no apparent distress Head exam: Present: atraumatic, normocephalic Eye exam: Present: normal appearance Neck exam: Present: tenderness (Patient does have tenderness to the lower cervical spine, mild. There is some tenderness as well of the right paracervical musculature.) Respiratory exam: Present: normal lung sounds bilaterally Cardiovascular Exam: Present: regular rate, normal rhythm Expanded Peripheral pulses: 2+: Radial (R) GI/Abdominal exam: Present: soft. Absent: tenderness Extremities exam: Present: other (Right arm is distally neurovascularly intact. There is muscle fullness and tenderness to the right upper trapezius between the neck and shoulder.) Right Shoulder Exam: Present: tenderness, other (Pain with active range of motion. No pain with passive range of motion). Absent: swelling, abrasion, deformity, crepitus Upper Arm exam: Present: normal inspection Elbow exam: Present: normal inspection Forearm Wrist exam: Present: normal inspection Hand Wrist exam: Present: normal inspection Back exam: Present: muscle spasm (Right upper trapezius). Absent: vertebral tenderness Neurological exam: Present: alert. Absent: motor sensory deficit Psychiatric exam: Present: normal affect, normal mood Skin exam: Present: normal color Course Vital Signs 02/12/18 06:13 Temperature 98.1 F Pulse Rate 74 Respiratory 20 Rate Blood Pressure 119/76 O2 Sat by Pulse 99 Oximetry Medical Decision Making - Medical Decision Making Patient reevaluated and updated on results and need for follow-up. - Radiology Data Radiology results: image reviewed (Right shoulder x-ray shows no acute process. Cervical spine does show some degenerative disc disease and facet arthropathy) Disposition Clinical Impression: Cervical radiculopathy Disposition: HOME SELF-CARE Condition: Stable Instructions: Cervical Radiculopathy (ED), Neck Pain (ED) Additional Instructions: Please follow-up with primary care physician and Dr. Dan in the next couple days for recheck. Return for weakness, loss of sensation, worsening or change in symptoms or other concerns. Prescriptions: methylPREDNISolone Dose Pack [Medrol Dose Pack] 24 mg PO DAILY #1 tab Is patient prescribed a controlled substance at d/c from ED?: No Referrals: Mouna Cabrera MD [STAFF PHYSICIAN] - 1-2 days Kendall Dan DO [Doctor of Osteopathic Medicine] - 1-2 days Time of Disposition: 08:21
--- NOTE | 2018-02-12 08:15 | XR ---
Cervical spine HISTORY: Low neck pain radiating to shoulder 6 views of the cervical spine Cervical vertebral bodies show preserved height and bone mineralization. There is minimal retrolisthe sis grade 1 C2-3, C3-4, anterolisthesis grade 1 C4-5. Loss of disc height present at C5-6 with associ ated spondylosis, similar findings to lesser extent at C6-7. Oblique views show some foraminal encroa chment on the left at C5-6 and on the right at C3-4, C4-5 and C5-6. There is loss of normal cervical lordosis which may be seen in muscle spasm. IMPRESSION: Degenerative disc disease and facet arthropathy.
[2018-02-12 08:34] VITALS: BP 118/79; PULSE 69; RESP 18; TEMP 98.2
== END 2018-02-12 08:34 | disposition home or self-care (01) ==
LOC: EC 06:08
DX: M54.12 Radiculopathy, cervical region (principal); F17.200 Nicotine dependence, unspecified, uncomplicated
CPT/HCPCS: 72050; 73030; 99283; 96372 ×2; J2360; J1885

== ENCOUNTER 2018-02-14 18:48 | Emergency (ER) | payer OTHER ==
[2018-02-14 19:09] VITALS: RESP 18
[2018-02-14] MEDS ORDERED: MECLIZINE 12.5 MG TAB PO STA (19:19)
[2018-02-14] MEDS ORDERED: traMADol 50 MG TAB PO STA (19:19)
--- NOTE | 2018-02-14 19:33 | ED ---
Neck Injury/Pain HPI - General Chief Complaint: Neck Pain/Injury Stated Complaint: NECK INJURY COMPLICATIONS Time Seen by Provider: 02/14/18 19:14 Source: patient, RN notes reviewed Mode of arrival: ambulatory Limitations: no limitations - History of Present Illness Initial Comments: 47-year-old male present emergency from chief complaint of neck problems. Patient seen here and told that he has slipped disc. Patient states that they' re today he looked down and felt lightheaded and dizzy. Patient states symptoms resolved since left. He denies any chest pain or shortness breath no palpitations no mid back pain. Patient states that he still has ongoing neck pain not improving with the steroids. Patient states that he is a scheduled follow-up appointment as directed. Patient states he returns emergency department as he was told he had any other symptoms to return. Patient denies any nausea vomiting diarrhea constipation no fever no chills. Denies any sinus congestion or ear pain. - Related Data Home Medications Medication Instructions Recorded Confirmed No Known Home Medications [No 02/14/18 02/14/18 Known Home Medications] Allergies Allergy/AdvReac Type Severity Reaction Status Date / Time No Known Allergies Allergy Verified 02/14/18 19:05 Review of Systems ROS Statement: Those systems with pertinent positive or pertinent negative responses have been documented in the HPI. ROS Other: All systems not noted in ROS Statement are negative. Past Medical History Past Medical History: Myocardial Infarction ([place]), Myocardial Infarction (non Q- wave), Osteoarthritis (OA), Pneumonia Additional Past Medical History / Comment(s): Pt states he had a [place] 7-8 months ago but left ER AMA (past medical record indicate he presented to [facility] ER with chest pain and discharged home) and another [place] in 2011 but declined admission, ARTHRITIS in R shoulder, bronchitis. Last Myocardial Infarction Date:: ?Pt states [place] in 04/2016 History of Any Multi-Drug Resistant Organisms: None Reported Past Surgical History: No Surgical Hx Reported Additional Past Surgical History / Comment(s): R calf tendon/muscle repair and skin graft from injury as a 9yr old child. Past Anesthesia/Blood Transfusion Reactions: No Reported Reaction Past Psychological History: Anxiety, Depression Smoking Status: Current every day smoker Past Alcohol Use History: None Reported Past Drug Use History: None Reported - Past Family History Mother Family Medical History: Congestive Heart Failure (CHF), Coronary Artery Disease (CAD) Additional Family Medical History / Comment(s): Mother at the age of 83yrs. Father History Unknown: Yes General Exam Limitations: no limitations General appearance: alert, in no apparent distress Head exam: Present: atraumatic, normocephalic, normal inspection Eye exam: Present: normal appearance, PERRL, EOMI. Absent: scleral icterus, conjunctival injection, periorbital swelling ENT exam: Present: normal exam, normal oropharynx, mucous membranes moist Neck exam: Present: normal inspection, tenderness (Right trapezius), full ROM ( Mild discomfort with range of motion). Absent: meningismus, lymphadenopathy Respiratory exam: Present: normal lung sounds bilaterally. Absent: respiratory distress, wheezes, rales, rhonchi, stridor Cardiovascular Exam: Present: regular rate, normal rhythm, normal heart sounds. Absent: systolic murmur, diastolic murmur, rubs, gallop, clicks GI/Abdominal exam: Present: soft, normal bowel sounds. Absent: distended, tenderness, guarding, rebound, rigid Extremities exam: Present: normal inspection, full ROM, normal capillary refill. Absent: tenderness, pedal edema, joint swelling, calf tenderness Back exam: Present: normal inspection, full ROM. Absent: tenderness Neurological exam: Present: alert, oriented X3, CN II-XII intact, reflexes normal, other ([id number] intact bilaterally without over shooting). Absent : motor sensory deficit Skin exam: Present: warm, dry, intact, normal color. Absent: rash Course Vital Signs 02/14/18 19:05 Temperature 98.5 F Pulse Rate 93 Respiratory 18 Rate Blood Pressure 133/81 O2 Sat by Pulse 97 Oximetry Medical Decision Making - Medical Decision Making 47-year-old male presented from for revisit of neck pain. Patient does have degenerative changes noted. Patient will follow palpation had an episode of light headedness today. Patient is otherwise stable. Patient will be discharged with pain medication return parameters were discussed. - EKG Data EKG Comments: EKG performed at 19:25 normal sinus rhythm with rate of 84 [place] 152 QRS 86 QT/QTC 356/420 Disposition Clinical Impression: Cervical radiculopathy, Neck pain Disposition: HOME SELF-CARE Condition: Stable Instructions: Cervical Radiculopathy (ED) Additional Instructions: Please return to the Emergency Department if symptoms worsen or any other concerns. Is patient prescribed a controlled substance at d/c from ED?: No Referrals: None,Stated [Primary Care Provider] - 1-2 days Kendall Dan DO [Doctor of Osteopathic Medicine] - 1-2 days Time of Disposition: 19:57
--- NOTE | 2018-02-14 19:51 | CT ---
EXAMINATION TYPE: CT brain [place] DATE OF EXAM: 02/14/2018 COMPARISON: NONE HISTORY: Patient states he has slipped disc in cervical spine. Today is experiencing blurred vision a nd lightheadedness. Neck pain CT DLP: 1255.7 mGycm Automated exposure control for dose reduction was used. TECHNIQUE: CT scan of the head and cervical spine are performed without contrast. FINDINGS: Ventricles and sulci appear normal. There is no mass effect nor midline shift. There is n o sign of intracranial hemorrhage. The calvarium is intact. Cervical vertebra have normal alignment. There is narrowing at C5-6 disc space with mild spurring of the endplates. Facet joints are intact. The skull base is intact. There is no evidence for fracture. IMPRESSION: Negative CT scan of the brain. Spondylosis at C5-6. No fracture. Bilateral tonsillar enlargement noted.
[2018-02-14] MEDS ORDERED: ACET/COD 300 MG/30 MG STARTER PACK 6 TAB BTL PO STA (19:57)
[2018-02-14] MEDS ORDERED: IBUPROFEN 600 MG STARTER PACK 4 TAB BTL PO STA (19:57)
[2018-02-14 20:13] VITALS: BP 116/56; PULSE 78; TEMP 97
== END 2018-02-14 20:08 | disposition home or self-care (01) ==
LOC: EC 18:48
DX: M54.12 Radiculopathy, cervical region (principal); R42 Dizziness and giddiness; F17.200 Nicotine dependence, unspecified, uncomplicated; Z98.890 Other specified postprocedural states
CPT/HCPCS: 70450; 72125; 93005; 99284

== ENCOUNTER 2018-12-22 09:19 | Emergency (ER) | payer OTHER ==
[2018-12-22 09:23] VITALS: RESP 18
--- NOTE | 2018-12-22 09:40 | ED ---
General Adult HPI - General Chief complaint: Shortness of Breath Stated complaint: COLD SYMPTOMS Time Seen by Provider: 12/22/18 09:27 Source: patient Mode of arrival: ambulatory Limitations: no limitations - History of Present Illness Initial comments: Dictation was produced using [employer] dictation software. please excuse any grammatical, word or spelling errors. Chief Complaint: 48-year-old malePast medical history presents with cough and scratchy throat. History of Present Illness: 48-year-old male with no significant past medical history presents with cough and scratchy throat. Patient states she's been sick the last 7 days. States she's been having a productive cough. Denies any constitutional symptoms. The nose. States his throat is a little scratchy. Denies any overt sick contacts. No history of COPD or asthma or any other respiratory disease. Patient is a daily smoker. The ROS documented in this emergency department record has been reviewed and confirmed by me. Those systems with pertinent positive or negative responses have been documented in the HPI. All other systems are other negative and/or noncontributory. PHYSICAL EXAM: General Impression: Alert and oriented x3, not in acute distress HEENT: Normocephalic atraumatic, extra-ocular movements intact, pupils equal and reactive to light bilaterally, mucous membranes moist, mild oropharyngeal erythema Cardiovascular: Heart regular rate and rhythm, S1&S2 audible, no murmurs, rubs or gallops Chest: Lungs clear to auscultation bilaterally, no rhonchi, no wheeze, no rales Abdomen: Bowel sounds present, abdomen soft, non-tender, non-distended, no organomegaly Musculoskeletal: Pulses present and equal in all extremities, no peripheral edema Motor: no focal deficits noted Neurological: CN II-XII grossly intact, no focal motor or sensory deficits noted Skin: Intact with no visualized rashes Psych: Normal affect and mood ED course: 48-year-old male presents with respiratory symptoms. Vital signs upon arrival are within acceptable limits. Patient is well-appearing. Auscultation of the lungs unremarkable.Rapid strep test is negative. X-ray shows no acute findings. Patient given Zithromax pack and told to follow-up with his primary care physician. Patient reevaluated found with stable medical condition. - Related Data Home Medications Medication Instructions Recorded Confirmed Cpm/PE/Dm/Acetaminophen/Guaifn 1 tab PO BID PRN 04/23/19 04/23/19 [Tylenol Cold-Flu Day-Nt Caplet] Previous Rx's Medication Instructions Recorded Azithromycin [Zithromax Z-pack] 0 mg PO DIRECTED #6 tab 12/22/18 Allergies Allergy/AdvReac Type Severity Reaction Status Date / Time No Known Allergies Allergy Verified 12/22/18 09:36 Review of Systems ROS Statement: Those systems with pertinent positive or pertinent negative responses have been documented in the HPI. ROS Other: All systems not noted in ROS Statement are negative. Past Medical History Past Medical History: Myocardial Infarction ([place]), Myocardial Infarction (non Q- wave), Osteoarthritis (OA), Pneumonia Additional Past Medical History / Comment(s): Pt states he had a [place] 7-8 months ago but left ER AMA (past medical record indicate he presented to [facility] ER 04/09/16 with chest pain and discharged home) and another [place] in 2011 but declined admission, ARTHRITIS in R shoulder, bronchitis. Last Myocardial Infarction Date:: ?Pt states [place] in 04/2016 History of Any Multi-Drug Resistant Organisms: None Reported Past Surgical History: No Surgical Hx Reported Additional Past Surgical History / Comment(s): R calf tendon/muscle repair and skin graft from injury as a 9yr old child. Past Anesthesia/Blood Transfusion Reactions: No Reported Reaction Past Psychological History: Anxiety, Depression Smoking Status: Current every day smoker Past Alcohol Use History: None Reported Past Drug Use History: None Reported - Past Family History Mother Family Medical History: Congestive Heart Failure (CHF), Coronary Artery Disease (CAD) Additional Family Medical History / Comment(s): Mother at the age of 83yrs. Father History Unknown: Yes General Exam Limitations: no limitations Course Vital Signs 12/22/18 12/22/18 09:20 09:23 Temperature 97.6 F 97.8 F Pulse Rate 90 Respiratory 18 Rate Blood Pressure 127/86 O2 Sat by Pulse 97 97 Oximetry Medical Decision Making - Lab Data Lab Results 12/22/18 Range/Units 09:45 Group A Strep Rapid Negative (Negative) Disposition Clinical Impression: Cough Disposition: HOME SELF-CARE Condition: Good Instructions (If sedation given, give patient instructions): Acute Cough (ED) Prescriptions: Azithromycin [Zithromax Z-pack] 0 mg PO DIRECTED #6 tab Is patient prescribed a controlled substance at d/c from ED?: No Referrals: Letty Baig MD [REFERRING] - 1-2 days Time of Disposition: 10:31
--- NOTE | 2018-12-22 10:24 | XR ---
EXAMINATION TYPE: XR chest 2V DATE OF EXAM: 12/22/2018 COMPARISON: Prior chest x-ray 12/01/2017 HISTORY: Cough, congestion TECHNIQUE: Frontal and lateral views of the chest are obtained. FINDINGS: There is no focal air space opacity, pleural effusion, or pneumothorax seen. The cardiac silhouette size is within normal limits. The osseous structures are intact. Prominent lung volume c ould be indicative of underlying COPD. There is bronchial wall thickening. IMPRESSION: Correlate for bronchitis, reactive airways disease.
[2018-12-22 10:48] VITALS: BP 110/83; PULSE 88; TEMP 97.3
== END 2018-12-22 10:47 | disposition home or self-care (01) ==
LOC: EC 09:19
DX: R05 Cough (principal); I25.2 Old myocardial infarction; F17.200 Nicotine dependence, unspecified, uncomplicated
CPT/HCPCS: 71046; 87081; 87430; 99283